=== PATIENT | male | born 1955 | race Caucasian/White ===

== ENCOUNTER 2016-06-28 09:29 | Emergency (ER) | payer OTHER ==
[~2016-06-28] VITALS: Ht 185.4 cm; Wt 108.9 kg
[~2016-06-28 09:29] MED LIST: AMOX-358 PO; ASPI-84 PO; ATEN25TA PO; ATEN50TA PO; CLIN-62 PO; HYDR1CAP2 PO; SULF1TAB38 PO
--- OUTSIDE RECORDS SUMMARY | 2016-06-28 09:36 | XMS REPORT | Continuity of Care Document ---
Author Author [facility] Address Unknown Phone Unavailable Allergies Medications Problems Date Dx Coded Attending Type Code Diagnosis Diagnosed By 04/24/2014 JENNIFER CURRAN MD 401.1 BENIGN ESSENTIAL HYPERTENSION 04/24/2014 JENNIFER CURRAN MD V76.51 COLON CANCER SCREENING Procedures Code [place] [id number] ROUTINE VENIPUNCTURE 04/24/2014 99762 CMP 04/24/2014 87298 LIPID PANEL 04/24 Results Encounters ACCT No. Visit Date/Time Discharge Status Pt. Type Provider Facility Loc./Unit Complaint [id number] 04/24/2014 08:14:00 04/24/2014 23: 59:59 CLS Outpatient JENNIFER CURRAN MD
[2016-06-28 10:10] LABS: BASOPHILS % (AUTO) 0 % (0-10); EOSINOPHILS % (AUTO) 1 % (0-10); LYMPHOCYTES # (AUTO) 0.4 X 10^3 (1.0-4.0); LYMPHOCYTES % (AUTO) 6 % (12-44); MEAN CORPUSCULAR HEMOGLOBIN 30 PG (25-34); MEAN CORPUSCULAR HGB CONC 34 G/DL (32-36); MEAN CORPUSCULAR VOLUME 89 FL (80-99); MEAN PLATELET VOLUME 8.8 FL (7.4-10.4); MONOCYTES # (AUTO) 0.3 X 10^3 (0.0-1.0); MONOCYTES % (AUTO) 5 % (0-12); NEUTROPHILS % (AUTO) 88 % (42-75); PLATELET COUNT 242 10^3/uL (130-400); RED BLOOD COUNT 4.06 10^6/uL (4.35-5.85); RED CELL DISTRIBUTION WIDTH 12.5 % (10.0-14.5); WHITE BLOOD COUNT 6.9 10^3/uL (4.3-11.0)
--- NOTE | 2016-06-28 10:29 | ED General ---
General Chief Complaint: General Problems/Pain Stated Complaint: LEGS/SHOULDERS/ARMS PAIN Nursing Triage Note: AMB TO ROOM REPORTS SINCE OCTOBER HAS HAD JOINT PAIN . WAS ON VACATION AT [facility] HAD NEG WORK UP IN ER AT THAT TIME. STARTED ON B/P MEDS . HAS GOTTEN BETTER. LAST 2 MONTHS IT HAS CAME BACK NO FOLLOW UP DONE TOOK 1 ADVIL FOR PAIN Nursing Sepsis Screen: No Definite Risk Source of Information: Patient Exam Limitations: No Limitations History of Present Illness Time Seen by Provider: 09:40 Initial Comments This 61-year-old gentleman presents to the emergency room with generalized myalgias affecting primarily his upper extremities and his thighs. This has been getting progressively worse over the past couple of days. 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 He had a thorough workup reportedly performed by an ER provider near [facility]. He reports the workup was negative and symptoms eventually gradually resolved until he was back to baseline around February. He did receive a short course of steroids by his provider at [facility]. He was reports he was screened for rheumatologic disorders but no abnormalities were found. His present symptoms started around [place] time and have become progressively worse. He was not screen for tickborne diseases. He denies any GI or respiratory symptoms. He is only taken Advil 200 mg for this pain. He reports the pain and weakness is so intense that he can sometimes hardly stand up. Patient has no local primary care provider. Allergies and Home Medications Allergies Coded Allergies: No Known Drug Allergies (Unverified , 03/19/10) Home Medications Amoxicillin 500 Mg Tablet #40 1,000 MG PO BID Prescribed by: AMILCAR DAVE on 06/28/16 1444 Atenolol 25 Mg Tablet 25 MG PO DAILY (Reported) Hydrocodone/Acetaminophen 1 Each Tablet #10 1 EACH PO Q6H PRN PRN PAIN Prescribed by: AMILCAR DAVE on 06/28/16 1437 Constitutional: no symptoms reported EENTM: no symptoms reported Respiratory: no symptoms reported Cardiovascular: no symptoms reported Gastrointestinal: no symptoms reported Genitourinary: no symptoms reported Musculoskeletal: see HPI Skin: no symptoms reported Psychiatric/Neurological: No Symptoms Reported Hematologic/Lymphatic: No Symptoms Reported Past Oajtwrq-Rulxhn-Mqkpyf Hx Patient Social History Alcohol Use: Denies Use Recreational Drug Use: No Smoking Status: Never a Smoker Recent Foreign Travel: No Contact w/Someone Who Travel: No Recent Infectious Disease Expo: No Recent Hopitalizations: No Immunizations Up To Date Tetanus Booster (TDap): Unknown PED Vaccines UTD: Yes Seasonal Allergies Seasonal Allergies: No Surgeries HX Surgeries: No Respiratory Hx Respiratory Disorders: No Cardiovascular Hx Cardiac Disorders: Yes Cardiac Disorders: Hypertension Neurological Hx Neurological Disorders: No Reproductive System Hx Reproductive Disorders: No Genitourinary Hx Genitourinary Disorders: No Gastrointestinal Hx Gastrointestinal Disorders: No Musculoskeletal Hx Musculoskeletal Disorders: No Endocrine Hx Endocrine Disorders: No HEENT HX ENT Disorders: No Psychosocial Hx Psychiatric Problems: No Blood Transfusions Hx Blood Disorders: No Physical Exam Vital Signs Vital Sign - Last 12Hours 06/28/16 09:32 Temp 99.0 Pulse 88 Resp 18 B/P 133/94 Pulse Ox 96 Capillary Refill : Less Than 3 Seconds General Appearance: No Apparent Distress WD/WN HEENT: PERRL/EOMI Normal ENT Inspection Pharynx Normal Other (severe dental decay and gingivitis) Neck: Normal Inspection Respiratory: Lungs Clear Normal Breath Sounds No Accessory Muscle Use No Respiratory Distress Cardiovascular: Regular Rate, Rhythm No Edema No Murmur Gastrointestinal: Normal Bowel Sounds Non Tender Soft Extremity: Normal Inspection No Pedal Edema Other (mild tenderness to palpation of the thighs and arms) Neurologic/Psychiatric: Alert Oriented x3 Normal Mood/Affect turkish rubber II-XII Norm as Tested Motor Weakness (mild proximal muscle weakness of the extremities) Skin: Normal Color Warm/Dry Progress/Results/Core Measures Results/Orders Lab Results Laboratory Tests Test 06/28/16 10:03 06/28/16 11:57 06/28/16 12:49 Range/Units Alanine Aminotransferase (ALT/SGPT) 17 0-55 U/L Albumin 3.1 L 3.2-4.5 G/DL Alkaline Phosphatase 43 40-136 U/L Anion Gap 10 5-14 MMOL/L Aspartate Amino Transf (AST/SGOT) 24 5-34 U/L BUN/Creatinine Ratio 16 Band Neutrophils 4 % Basophils # (Auto) 0.0 0.0-0.1 10^3/uL Basophils % (Manual) 0 % Basophils (%) (Auto) 0 0-10 % Blood Urea Nitrogen 30 H 7-18 MG/DL C-Reactive Protein High Sensitivity 8.17 H 0.00-0.50 MG/DL Calcium Level 8.5 8.5-10.1 MG/DL Carbon Dioxide Level 20 L 21-32 MMOL/L Chloride Level 106 98-107 MMOL/L Creatinine 1.84 H 0.60-1.30 MG/DL Elliptocytes SLIGHT Eosinophils # (Auto) 0.0 0.0-0.3 10^3/uL Eosinophils % (Manual) 0 % Eosinophils (%) (Auto) 1 0-10 % Erythrocyte Sedimentation Rate 77 H 0-30 MM/HR Estimat Glomerular Filtration Rate 37 Glucose Level 101 70-105 MG/DL Hematocrit 36 L 40-54 % Hemoglobin 12.2 L 13.3-17.7 G/DL Lymphocytes # (Auto) 0.4 L 1.0-4.0 X 10^3 Lymphocytes % (Manual) 3 % Lymphocytes (%) (Auto) 6 L 12-44 % Magnesium Level 1.8 1.8-2.4 MG/DL Mean Corpuscular Hemoglobin 30 25-34 PG Mean Corpuscular Hemoglobin Concent 34 32-36 G/DL Mean Corpuscular Volume 89 80-99 FL Mean Platelet Volume 8.8 7.4-10.4 FL Monocytes # (Auto) 0.3 0.0-1.0 X 10^3 Monocytes % (Manual) 6 % Monocytes (%) (Auto) 5 0-12 % Neutrophils # (Auto) 6.0 1.8-7.8 X 10^3 Neutrophils % (Manual) 87 % Neutrophils (%) (Auto) 88 H 42-75 % Platelet Count 242 130-400 10^3/uL Potassium Level 4.5 3.6-5.0 MMOL/L Red Blood Count 4.06 L 4.35-5.85 10^6/uL Red Cell Distribution Width 12.5 10.0-14.5 % Rheumatoid Factor NEGATIVE NEGATIVE Sodium Level 136 135-145 MMOL/L TSH [place] Testing 4.35 0.35-4.94 UIU/ML Total Bilirubin 0.5 0.1-1.0 MG/DL Total Creatine Kinase 23 L 30-200 U/L Total Protein 6.9 6.4-8.2 G/DL White Blood Count 6.9 4.3-11.0 10^3/uL Urine Bacteria NEGATIVE /HPF Urine Bilirubin NEGATIVE NEGATIVE Urine Casts PRESENT /LPF Urine Clarity CLEAR Urine Color YELLOW Urine Crystals NONE /LPF Urine Culture Indicated NO Urine Glucose (UA) NEGATIVE NEGATIVE Urine Hyaline Casts 5-10 H /LPF Urine Ketones NEGATIVE NEGATIVE Urine Leukocyte Esterase 1+ H NEGATIVE Urine Mucus SMALL H /LPF Urine Nitrite NEGATIVE NEGATIVE Urine Protein 4+ NEGATIVE Urine RBC 50-100 H /HPF Urine RBC (Auto) 5+ H NEGATIVE Urine Specific Bailey 1.020 1.016-1.022 Urine Squamous Epithelial Cells NONE /HPF Urine Urobilinogen NORMAL NORMAL MG/DL Urine WBC 0-2 /HPF Urine pH 6 5-9 Group A Streptococcus Screen NEGATIVE NEGATIVE My Orders Orders-AMILCAR LOZANO MD Cbc With Automated Diff (06/28/16 09:53) Comprehensive Metabolic Panel (06/28/16 09:53) Creatine Kinase (06/28/16 09:53) Hs C Reactive Protein (06/28/16 09:53) Magnesium (06/28/16 09:53) Thyroid Analyzer (06/28/16 09:53) Ua Culture If Indicated (06/28/16 09:53) Erythrocyte Sedimentation Rate (06/28/16 09:53) Saline Lock/Iv-Start (06/28/16 09:53) Manual Differential (06/28/16 10:03) Rheumatoid Factor (06/28/16 10:31) Ns Iv 1000 Ml (Sodium Chloride 0.9%) (06/28/16 11:00) Ketorolac Injection (Toradol Injection) (06/28/16 11:00) Ns Iv 1000 Ml (Sodium Chloride 0.9%) (06/28/16 12:44) Anti Streptolysin O Titer (06/28/16 12:54) Rapid Strep A Screen (06/28/16 12:54) Medications Given in ED Current Medications Medications Dose Ordered Sig/Lynne Route Start Time Stop Time Status Last Admin Dose Admin Ketorolac Tromethamine 15 mg 15 mg ONCE ONCE IVP 06/28/16 11:00 06/28/16 11:02 DC 06/28/16 11:06 15 MG Sodium Chloride 1,000 ml @ 0 mls/hr Q0M ONCE IV 06/28/16 11:00 06/28/16 11:02 DC 06/28/16 11:06 1,000 MLS/HR Sodium Chloride 1,000 ml @ 0 mls/hr Q0M ONCE IV 06/28/16 12:44 06/28/16 12:45 DC 06/28/16 12:57 1,000 MLS/HR Vital Signs/I&O Vital Sign - Last 12Hours 06/28/16 09:32 Temp 99.0 Pulse 88 Resp 18 B/P 133/94 Pulse Ox 96 Blood Pressure Mean: 107 Progress Note : Progress Note Patient received 2 L of IV fluid and Toradol 15 mg IV. He feels significantly improved. Case was reviewed with Dr. Curran at [facility]. Patient was actually seen by Dr. Curran in 2013. She does not have immediate availability for him to follow-up in the clinic but she will order labs for him to have done on . Patient will receive a prescription for hydrocodone to help with his pain in the meantime. Strep culture and ASO titer were pending at the time of dismissal. Rapid strep was negative. Patient requested antibiotic therapy for his severe dental disease. He was placed on amoxicillin. Patient thought perhaps his dental disease was contributing to the elevated inflammatory markers. Patient was encouraged to drink more fluids and follow-up with a dentist. The importance of follow-up with a medical doctor and repeat lab work was stressed. Departure Impression Impression: Primary Impression: Myalgia Additional Impressions: Proximal limb muscle weakness Acute renal insufficiency Elevated erythrocyte sedimentation rate Microscopic hematuria Dental decay Gingivitis Disposition: 01 HOME, SELF-CARE Condition: Improved Departure-Patient Inst. Decision time for Depature: 14:20 Referrals: NO,LOCAL PHYSICIAN (PCP/Family) Primary Care Physician Patient Instructions: Blood in the Urine (Hematuria) in Adults Add. Discharge Instructions: Drink plenty of clear liquids. You may take Tylenol or the hydrocodone prescribed for pain. Present to [facility] on [facility] to have blood drawn on , March 30. [facility] should call you for an appointment time. Please check with them on if an appointment has not been communicated to you yet. Return to the emergency room if symptoms worsen. All discharge instructions reviewed with patient and/or family. Voiced understanding. Scripts Amoxicillin 500 Mg Tablet1,000 Mg PO BID #40 TAB Prov:AMILCAR LOZANO MD 06/28/16 Hydrocodone/Acetaminophen (Hydrocodon -Acetaminophen 5-325)1 Each Tablet1 Each PO Q6H PRN PAIN #10 TAB Prov:AMILCAR LOZANO MD 06/28/16 Copy Copies To 1: JENNIFER CURRAN MD, JOSHUA T MD Jun 28, 2016 10:29
[2016-06-28 10:31] LABS: ALBUMIN 3.1 G/DL (3.2-4.5); BILIRUBIN,TOTAL 0.5 MG/DL (0.1-1.0); CALCIUM 8.5 MG/DL (8.5-10.1); CREATININE SERUM 1.84 MG/DL (0.60-1.30); MAGNESIUM 1.8 MG/DL (1.8-2.4); POTASSIUM 4.5 MMOL/L (3.6-5.0); TOTAL PROTEIN 6.9 G/DL (6.4-8.2); hs C REACTIVE PROTEIN 8.17 MG/DL (0.00-0.50)
[2016-06-28 10:40] LABS: BAND NEUTROPHILS 4 %; BASOPHILS % (MANUAL) 0 %; EOSINOPHILS % (MANUAL) 0 %; LYMPHOCYTES % (MANUAL) 3 %; NEUTROPHILS % (MANUAL) 87 %
[2016-06-28] MEDS ORDERED: NS IV 1000 ML 1,000 ML IV ONE ×2 (11:00→12:44)
[2016-06-28] MEDS ORDERED: KETOROLAC 30 MG/ML VIAL IVP ONE (11:00)
[2016-06-28 11:15] LABS: ERYTHROCYTE SEDIMENTATION RATE 77 MM/HR (0-30)
[2016-06-28 12:04] LABS: BILIRUBIN,URINE NEGATIVE (NEGATIVE); KETONES,URINE NEGATIVE (NEGATIVE); LEUKOCYTE ESTERASE ,URINE 1+ (NEGATIVE); NITRITE,URINE NEGATIVE (NEGATIVE); PH,URINE 6 (5-9); PROTEIN,URINE 4+ (NEGATIVE); UROBILINOGEN,URINE NORMAL (NORMAL)
[2016-06-28 12:23] LABS: WBC,URINE 0-2 /HPF
[2016-06-28] MEDS ORDERED: HYDR-3812 PO (14:37)
[2016-06-28 14:42] VITALS: BP 161/93
[2016-06-28] MEDS ORDERED: AMOX500T2 PO (14:44)
== END 2016-06-28 14:42 | disposition home or self-care (01) ==
LOC: EDUNIT# 09:29 → ER 09:31
DX: M79.1 Myalgia (principal); M62.81 Muscle weakness (generalized); N28.9 Disorder of kidney and ureter, unspecified; R70.0 Elevated erythrocyte sedimentation rate; R31.29 Other microscopic hematuria; K02.9 Dental caries, unspecified; K05.10 Chronic gingivitis, plaque induced; I10 Essential (primary) hypertension; Z79.899 Other long term (current) drug therapy
CPT/HCPCS: 36415; 80053; 81000; 82550; 83735; 84443; 85007; 85027; 85652; 86060; 86141; 86430; 87430; 96361; 96374

== ENCOUNTER 2016-07-03 13:16 | Inpatient (IN) | payer OTHER ==
[~2016-07-03] VITALS: Ht 182.9 cm; Wt 101.7 kg
[~2016-07-03 13:16] MED LIST changes: +AMOX500T2 PO; +HYDR-3812 PO
--- OUTSIDE RECORDS SUMMARY | 2016-07-03 13:21 | XMS REPORT | Continuity of Care Document ---
Author Author [facility] Address Unknown Phone Unavailable Allergies Medications Problems Date Dx Coded Attending Type Code Diagnosis Diagnosed By 04/24/2014 JENNIFER CURRAN MD 401.1 BENIGN ESSENTIAL HYPERTENSION 04/24/2014 JENNIFER CURRAN MD V76.51 COLON CANCER SCREENING Procedures Code [place] [id number] ROUTINE VENIPUNCTURE 04/24/2014 28881 CMP 04/24/2014 28897 LIPID PANEL 04/24 Results Encounters ACCT No. Visit Date/Time Discharge Status Pt. Type Provider Facility Loc./Unit Complaint [id number] 04/24/2014 08:14:00 04/24/2014 23: 59:59 CLS Outpatient JENNIFER CURRAN MD
[2016-07-03] MEDS ORDERED: tylenol (13:56)
[2016-07-03] MEDS ORDERED: NS IV 1000 ML 1,000 ML IV ONE (15:34)
--- NOTE | 2016-07-03 15:40 | ED GI ---
General Chief Complaint: Abdominal/GI Problems Stated Complaint: DEHYDRATION Nursing Triage Note: pt reports he was seen on 06/29/16, diagnosed with dehydration, sent home after fluids to f/u with his dr. he is unable to get in with [facility] until 07/12/16. reports he is not thirsty et isn't able to drink more than 16 oz per day. reports the decreased thirst is only in the past couple of days. c/o arm et leg pain x months. also c/o right side pain. he thinks he pulled a muscle standing up. Sepsis Screen: No Definite Risk Source of Information: Patient Exam Limitations: No Limitations History of Present Illness Time Seen By Provider: 15:25 Initial Comments Here with report of decreased urination and decreased thirst as well as right upper quadrant abdominal pain and intermittent fevers that have been going on for the last 4-5 days. This is all worse over the last 24 hours. He states that he's only drink one 8 ounce glass of water since yesterday. He states that he's been weak and has been unable to get up off the couch. Complains of right-sided pain that he thinks is related to that because his son has had to help him off the couch. He uses his right arm to pull up and he believes that is what caused the pain. He admits though that he has had right upper quadrant pain for a little while and this may not be related. Does complain of bilateral leg pain that has been going on for a long time. Timing/Duration: 1 Week, Getting Worse Severity/Quality: Moderate, Aching Location: RUQ Radiation: No Radiation Associated Symptoms: No Back Pain, Fever/Chills FatigueNo Nausea/Vomiting, No Shortness of Air, Weakness Allergies and Home Medications Allergies Coded Allergies: No Known Drug Allergies (Unverified , 03/19/10) Home Medications (Reported) Amoxicillin 500 Mg Tablet #40 1,000 MG PO BID Prescribed by: AMILCAR DAVE on 06/28/16 1444 Atenolol 25 Mg Tablet 25 MG PO DAILY (Reported) Review of Systems Constitutional: see HPI fever malaise weakness EENTM: No Symptoms Reported Respiratory: No Symptoms ReportedDenies Cough, Denies Wheezing Cardiovascular: No Symptoms Reported Gastrointestinal: Abdominal Pain Nausea Poor Fluid Intake Genitourinary: Other (decreased urine output. Dark colored urine.) Musculoskeletal: see HPI muscle painNo neck pain Skin: no symptoms reported Psychiatric/Neurological: No Symptoms Reported Endocrine: No Symptoms Reported All Other Systems Reviewed Negative Unless Noted: Yes Past Mwyzdau-Bnoopt-Zxpbex Hx Patient Social History Alcohol Use: Denies Use Recreational Drug Use: No Smoking Status: Never a Smoker Recent Foreign Travel: No Contact w/Someone Who Travel: No Recent Infectious Disease Expo: No Recent Hopitalizations: No Immunizations Up To Date Tetanus Booster (TDap): Unknown PED Vaccines UTD: Yes Seasonal Allergies Seasonal Allergies: No Surgeries HX Surgeries: No Respiratory Hx Respiratory Disorders: No Cardiovascular Hx Cardiac Disorders: Yes Cardiac Disorders: Hypertension Neurological Hx Neurological Disorders: No Reproductive System Hx Reproductive Disorders: No Genitourinary Hx Genitourinary Disorders: No Gastrointestinal Hx Gastrointestinal Disorders: No Musculoskeletal Hx Musculoskeletal Disorders: No Endocrine Hx Endocrine Disorders: No HEENT HX ENT Disorders: No Psychosocial Hx Psychiatric Problems: No Blood Transfusions Hx Blood Disorders: No Reviewed Nursing Assessment Reviewed/Agree w Nursing PMH: Yes Family Medical History Significant Family History: No Pertinent Family Hx Physical Exam Vital Signs VS - Last 72 Hours, by Label 07/03/16 13:50 Temp 99.3 Pulse 80 Resp 16 B/P 151/94 Capillary Refill : Less Than 3 Seconds General Appearance: WD/WN no apparent distress HEENT: PERRL/EOMI pharynx normal Neck: full range of motion supple Respiratory: lungs clear normal breath sounds Cardiovascular: regular rate, rhythm no murmur Gastrointestinal: soft tenderness (right upper quadrant) Extremities: non-tender normal inspection Back: normal inspection no CVA tenderness no vertebral tenderness Neurologic/Psychiatric: alert oriented x 3 Skin: normal color warm/dry Progress/Results/Core Measures Results/Orders Lab Results Laboratory Tests Test 07/03/16 15:23 07/03/16 15:37 07/03/16 16:45 Range/Units Urine Bacteria NEGATIVE /HPF Urine Bilirubin NEGATIVE NEGATIVE Urine Casts PRESENT /LPF Urine Clarity SLIGHTLY CLOUDY Urine Color YELLOW Urine Crystals NONE /LPF Urine Culture Indicated NO Urine Glucose (UA) NEGATIVE NEGATIVE Urine Hyaline Casts 2-5 H /LPF Urine Ketones NEGATIVE NEGATIVE Urine Leukocyte Esterase 1+ H NEGATIVE Urine Mucus NEGATIVE /LPF Urine Nitrite NEGATIVE NEGATIVE Urine Protein 4+ NEGATIVE Urine RBC TNTC H /HPF Urine RBC (Auto) 5+ H NEGATIVE Urine Specific [place] 1.020 1.016-1.022 Urine Squamous Epithelial Cells NONE /HPF Urine Urobilinogen 1 NORMAL MG/DL Urine WBC NONE /HPF Urine pH 6 5-9 Alanine Aminotransferase (ALT/SGPT) 22 0-55 U/L Albumin 3.1 L 3.2-4.5 G/DL Alkaline Phosphatase 48 40-136 U/L Amylase Level 40 25-125 U/L Anion Gap 11 5-14 MMOL/L Aspartate Amino Transf (AST/SGOT) 30 5-34 U/L BUN/Creatinine Ratio 15 Basophils # (Auto) 0.0 0.0-0.1 10^3/uL Basophils (%) (Auto) 0 0-10 % Blood Urea Nitrogen 26 H 7-18 MG/DL C-Reactive Protein High Sensitivity 11.31 H 0.00-0.50 MG/DL Calcium Level 8.5 8.5-10.1 MG/DL Carbon Dioxide Level 22 21-32 MMOL/L Chloride Level 104 98-107 MMOL/L Creatinine 1.73 H 0.60-1.30 MG/DL Eosinophils # (Auto) 0.0 0.0-0.3 10^3/uL Eosinophils (%) (Auto) 1 0-10 % Estimat Glomerular Filtration Rate 40 Glucose Level 100 70-105 MG/DL Hematocrit 35 L 40-54 % Hemoglobin 11.8 L 13.3-17.7 G/DL Lipase 11 8-78 U/L Lymphocytes # (Auto) 0.6 L 1.0-4.0 X 10^3 Lymphocytes (%) (Auto) 8 L 12-44 % Magnesium Level 1.7 L 1.8-2.4 MG/DL Mean Corpuscular Hemoglobin 30 25-34 PG Mean Corpuscular Hemoglobin Concent 34 32-36 G/DL Mean Corpuscular Volume 90 80-99 FL Mean Platelet Volume 8.9 7.4-10.4 FL Monocytes # (Auto) 0.5 0.0-1.0 X 10^3 Monocytes (%) (Auto) 6 0-12 % Neutrophils # (Auto) 6.3 1.8-7.8 X 10^3 Neutrophils (%) (Auto) 85 H 42-75 % Platelet Count 262 130-400 10^3/uL Potassium Level 4.0 3.6-5.0 MMOL/L Red Blood Count 3.88 L 4.35-5.85 10^6/uL Red Cell Distribution Width 12.6 10.0-14.5 % Sodium Level 137 135-145 MMOL/L Total Bilirubin 0.5 0.1-1.0 MG/DL Total Protein 7.0 6.4-8.2 G/DL White Blood Count 7.4 4.3-11.0 10^3/uL My Orders Orders-MAYNOR BRONSON MD Amylase (07/03/16 15:34) Cbc With Automated Diff (07/03/16 15:34) Comprehensive Metabolic Panel (07/03/16 15:34) Hs C Reactive Protein (07/03/16 15:34) Lipase (07/03/16 15:34) Magnesium (07/03/16 15:34) Ua Culture If Indicated (07/03/16 15:34) Saline Lock/Iv-Start (07/03/16 15:34) Ns Iv 1000 Ml (Sodium Chloride 0.9%) (07/03/16 15:34) Ct Abdomen/Pelvis Wo (07/03/16 15:34) Chest Pa/Lat (2 View) (07/03/16 15:34) Blood Culture (07/03/16 16:40) Lactic Acid Analyzer (07/03/16 16:40) Medications Given in ED Current Medications Medications Dose Ordered Sig/Lynne Route Start Time Stop Time Status Last Admin Dose Admin Sodium Chloride 1,000 ml @ 0 mls/hr Q0M ONCE IV 07/03/16 15:34 07/03/16 15:35 DC 07/03/16 15:48 1,000 MLS/HR Vital Signs/I&O Vital Sign - Last 12Hours 07/03/16 13:50 Temp 99.3 Pulse 80 Resp 16 B/P 151/94 Blood Pressure Mean: 113 Progress Note : Progress Note Seen and evaluated. IV, labs, UA, normal saline [address] abdomen and pelvis without contrast ordered. Chest x-ray two-view ordered. Monitor patient. 1645: CT reading and chest x-ray results noted. There is concerns about right basilar pneumonia. Given patient's increasing right-sided abdominal pain and low chest wall pain with increasing CRP, left shift and fever , I am concerned about pneumonia. Patient has poor dentition and has been on amoxicillin. This leads to concerns about pneumonia related to oral disease. All of the findings and concerns were discussed with Dr. Rinaldi. We will place him on the community-acquired pneumonia protocol with Rocephin and Zithromax but also add clindamycin due to the periodontal disease and concerns for infection of the lungs related to this. Patient's creatinine is elevated but appears stable from 4 days ago. He did receive 1 L of normal saline in the ER and we will continue hydration inpatient. All findings and concerns were discussed with the patient who agrees with the plan. Admit, inpatient status. Diagnostic Imaging Diagonstic Imaging: Xray Plain Films/CT/US/NM/MRI: chest Comments NAME: PAUL CORDERO MED REC#: [id number] PT STATUS: REG ER : 1955 PHYSICIAN: MAYNOR BRONSON MD ADMIT DATE: 07/03/16/ER Signed Date of Exam: 07/03/16 CHEST PA/LAT (2 VIEW) INDICATION: Right-sided chest pain. COMPARISON: CT abdomen and pelvis performed concurrently. FINDINGS: Small right pleural effusion with associated linear atelectasis. Patchy left basilar linear opacities also likely represent atelectasis. No consolidation. No pneumothorax. Heart is normal in size. Normal mediastinal contours. IMPRESSION: 1. Small right pleural effusion with associated basilar subsegmental atelectasis. Patchy left basilar linear atelectasis is also present. Dictated by: Dictated on workstation # [id number] Dict: 07/03/16 1611 Trans: 07/03/16 1624 [id number] Interpreted by: CHAPIS RUSSO MD Electronically signed by:CHAPIS RUSSO MD 07/03/16 1627 Reviewed: Reviewed by Me Diagonstic Imaging: CT Plain Films/CT/US/NM/MRI: abdomen, pelvis Comments NAME: PAUL CORDERO MED REC#: [id number] PT STATUS: REG ER : 1955 PHYSICIAN: MAYNOR BRONSON MD ADMIT DATE: 07/03/16/ER Signed Date of Exam: 07/03/16 CT ABDOMEN/PELVIS WO PROCEDURE: CT abdomen and pelvis without contrast. TECHNIQUE: Multiple contiguous axial images were obtained through the abdomen and pelvis without the use of intravenous contrast. INDICATION: Right-sided flank pain. FINDINGS: There is a small right pleural effusion with right basilar atelectasis. Liver appears normal. The gallbladder and bile ducts are normal. The pancreas is normal. The spleen is normal. Adrenal glands appear normal. There are bilateral peripelvic cysts. There are a few nonobstructing calyceal calculi present, bilaterally. The ureters are not dilated. There are no calculi within the ureters. The bladder appears normal. No calculi are seen in the bladder. The aorta shows mild atherosclerosis without evidence of aneurysm. No intra-abdominal adenopathy of pathologic size. The appendix is not identified. No evidence of edema surrounding the cecum. The terminal colon is visualized and normal. Colon shows normal stool and gas pattern throughout. Stomach and small bowel appear normal with no distended bowel loops. There is no free air or free fluid. No evidence of ventral or inguinal hernias. IMPRESSION: 1. Multiple large peripelvic cysts are present in the kidneys which appear similar to previous exam. There are several nonobstructing calyceal calculi present, bilaterally. 2. The appendix is not specifically identified though no edema or inflammatory changes are seen around the cecum. 3. Small bowel appears normal. 4. There is some atelectasis and/or infiltrate in the right lung base with small right pleural effusion. Dictated by: Dictated on workstation # [id number] Dict: 07/03/16 1607 Trans: 07/03/16 1633 [facility] [id number] Interpreted by: SONU RUSSO MD Electronically signed by:SONU RUSSO MD 07/03/16 1635 Reviewed: Reviewed by Mo Departure Communication Time/Spoke to Admitting Phy: 16:45 Impression Impression: Primary Impression: Right lower lobe pneumonia Qualified Code: J18.1 - Lobar pneumonia, unspecified organism Additional Impression: Periodontal disease Disposition: ADMITTED INPATIENT Condition: Stable Decision to Admit Reason: Admit from ER (General) Decision to Admit/Date: Jul 03, 2016 Time/Decision to Admit Time: 16:45 Departure-Patient Inst. Referrals: [facility] (PCP/Family) Primary Care Physician MAYNOR BRONSON MD Jul 03, 2016 15:40
[2016-07-03 15:46] LABS: BILIRUBIN,URINE NEGATIVE (NEGATIVE); KETONES,URINE NEGATIVE (NEGATIVE); LEUKOCYTE ESTERASE ,URINE 1+ (NEGATIVE); NITRITE,URINE NEGATIVE (NEGATIVE); PH,URINE 6 (5-9); PROTEIN,URINE 4+ (NEGATIVE); UROBILINOGEN,URINE 1 MG/DL (NORMAL)
[2016-07-03 15:53] LABS: BASOPHILS % (AUTO) 0 % (0-10); EOSINOPHILS % (AUTO) 1 % (0-10); LYMPHOCYTES # (AUTO) 0.6 X 10^3 (1.0-4.0); LYMPHOCYTES % (AUTO) 8 % (12-44); MEAN CORPUSCULAR HEMOGLOBIN 30 PG (25-34); MEAN CORPUSCULAR HGB CONC 34 G/DL (32-36); MEAN CORPUSCULAR VOLUME 90 FL (80-99); MEAN PLATELET VOLUME 8.9 FL (7.4-10.4); MONOCYTES # (AUTO) 0.5 X 10^3 (0.0-1.0); MONOCYTES % (AUTO) 6 % (0-12); NEUTROPHILS # (AUTO) 6.3 X 10^3 (1.8-7.8); NEUTROPHILS % (AUTO) 85 % (42-75); PLATELET COUNT 262 10^3/uL (130-400); RED BLOOD COUNT 3.88 10^6/uL (4.35-5.85); RED CELL DISTRIBUTION WIDTH 12.6 % (10.0-14.5); WHITE BLOOD COUNT 7.4 10^3/uL (4.3-11.0)
[2016-07-03 16:06] LABS: ALBUMIN 3.1 G/DL (3.2-4.5); BILIRUBIN,TOTAL 0.5 MG/DL (0.1-1.0); CALCIUM 8.5 MG/DL (8.5-10.1); CREATININE SERUM 1.73 MG/DL (0.60-1.30); MAGNESIUM 1.7 MG/DL (1.8-2.4); hs C REACTIVE PROTEIN 11.31 MG/DL (0.00-0.50)
--- NOTE | 2016-07-03 16:18 | Diagnostic Imaging Report ---
INDICATION: Right-sided chest pain. COMPARISON: CT abdomen and pelvis performed concurrently. FINDINGS: Small right pleural effusion with associated linear atelectasis. Patchy left basilar linear opacities also likely represent atelectasis. No consolidation. No pneumothorax. Heart is normal in size. Normal mediastinal contours. IMPRESSION: 1. Small right pleural effusion with associated basilar subsegmental atelectasis. Patchy left basilar linear atelectasis is also present. Dictated by: Dictated on workstation # [id number]
--- NOTE | 2016-07-03 16:18 | Diagnostic Imaging Report ---
PROCEDURE: CT abdomen and pelvis without contrast. TECHNIQUE: Multiple contiguous axial images were obtained through the abdomen and pelvis without the use of intravenous contrast. INDICATION: Right-sided flank pain. FINDINGS: There is a small right pleural effusion with right basilar atelectasis. Liver appears normal. The gallbladder and bile ducts are normal. The pancreas is normal. The spleen is normal. Adrenal glands appear normal. There are bilateral peripelvic cysts. There are a few nonobstructing calyceal calculi present, bilaterally. The ureters are not dilated. There are no calculi within the ureters. The bladder appears normal. No calculi are seen in the bladder. The aorta shows mild atherosclerosis without evidence of aneurysm. No intra-abdominal adenopathy of pathologic size. The appendix is not identified. No evidence of edema surrounding the cecum. The terminal colon is visualized and normal. Colon shows normal stool and gas pattern throughout. Stomach and small bowel appear normal with no distended bowel loops. There is no free air or free fluid. No evidence of ventral or inguinal hernias. IMPRESSION: 1. Multiple large peripelvic cysts are present in the kidneys which appear similar to previous exam. There are several nonobstructing calyceal calculi present, bilaterally. 2. The appendix is not specifically identified though no edema or inflammatory changes are seen around the cecum. 3. Small bowel appears normal. 4. There is some atelectasis and/or infiltrate in the right lung base with small right pleural effusion. Dictated by: Dictated on workstation # [id number]
[2016-07-03] MEDS ORDERED: cefTRIAXone INJECTION 1,000 MG in NS (IVPB) 50 ML IV ONE (17:15)
[2016-07-03] MEDS ORDERED: ASPI-983 PO (18:12)
[2016-07-03] MEDS ORDERED: AZITHROMYCIN IV ADD-VANTAGE 500 MG in SODIUM CHLORIDE (ADD-VANTAGE) 250 ML IV ONE (18:15)
[2016-07-03] MEDS ORDERED: SODIUM CHLORIDE (ADD-VANTAGE) 250 ML ONE (18:30)
[2016-07-03] MEDS ORDERED: AZITHROMYCIN IV ADD-VANTAGE 500 MG IV ONE (18:30)
[2016-07-03] MEDS: NS IV 1000 ML 1,000 ML IV SCH (18:34)
[2016-07-03 20:18] VITALS: BP 159/91
[2016-07-03] MEDS: CLINDAMYCIN 900 MG/50 ML IVPB 50 ML IV SCH (21:42)
[2016-07-04 00:36] VITALS: BP 133/82
[2016-07-04 04:17] VITALS: BP 143/87
[2016-07-04] MEDS: NS IV 1000 ML 1,000 ML IV SCH ×4 (04:46→21:16)
[2016-07-04] MEDS: CLINDAMYCIN 900 MG/50 ML IVPB 50 ML IV SCH ×3 (05:04→21:16)
[2016-07-04 06:18] LABS: BASOPHILS % (AUTO) 0 % (0-10); EOSINOPHILS % (AUTO) 1 % (0-10); LYMPHOCYTES # (AUTO) 0.4 X 10^3 (1.0-4.0); MEAN CORPUSCULAR HEMOGLOBIN 30 PG (25-34); MEAN CORPUSCULAR HGB CONC 33 G/DL (32-36); MEAN CORPUSCULAR VOLUME 92 FL (80-99); MEAN PLATELET VOLUME 9.1 FL (7.4-10.4); MONOCYTES # (AUTO) 0.3 X 10^3 (0.0-1.0); MONOCYTES % (AUTO) 7 % (0-12); PLATELET COUNT 198 10^3/uL (130-400); RED BLOOD COUNT 3.17 10^6/uL (4.35-5.85); RED CELL DISTRIBUTION WIDTH 12.5 % (10.0-14.5); WHITE BLOOD COUNT 4.8 10^3/uL (4.3-11.0)
[2016-07-04 06:19] LABS: LYMPHOCYTES % (AUTO) 9 % (12-44); NEUTROPHILS % (AUTO) 83 % (42-75)
[2016-07-04 06:41] LABS: ALBUMIN 2.5 G/DL (3.2-4.5); BILIRUBIN,TOTAL 0.3 MG/DL (0.1-1.0); CALCIUM 7.4 MG/DL (8.5-10.1); CREATININE SERUM 1.51 MG/DL (0.60-1.30); POTASSIUM 4.2 MMOL/L (3.6-5.0); TOTAL PROTEIN 5.5 G/DL (6.4-8.2)
[2016-07-04] MEDS ORDERED: FLU TRIvalent (5 YOA+) 2016-17 (AFLURIA) 0.5 ML IM ONE (07:30)
[2016-07-04 08:00] VITALS: BP 164/96
[2016-07-04] MEDS ORDERED: ACET-2267 PO (08:43)
[2016-07-04] MEDS: AZITHROMYCIN 250 MG TAB (ZITHROMAX) PO SCH (09:05)
[2016-07-04] MEDS ORDERED: ATEN50TA PO (09:13)
[2016-07-04] MEDS ORDERED: HYDR-3812 PO (09:13)
[2016-07-04] MEDS ORDERED: AMOX500C2 PO (09:13)
[2016-07-04 12:00] VITALS: BP 178/97
[2016-07-04 12:02] LABS: BILIRUBIN,URINE NEGATIVE (NEGATIVE); KETONES,URINE NEGATIVE (NEGATIVE); LEUKOCYTE ESTERASE ,URINE NEGATIVE (NEGATIVE); NITRITE,URINE NEGATIVE (NEGATIVE); PH,URINE 6 (5-9); PROTEIN,URINE 4+ (NEGATIVE); UROBILINOGEN,URINE NORMAL (NORMAL)
[2016-07-04 12:18] LABS: CALCIUM OXALATE CRYSTALS,UR FEW /LPF; SQUAMOUS EPITHELIAL CELL,UR 0-2 /HPF
[2016-07-04] MEDS ORDERED: RX-HYDROCODONE/APAP 5/325 MG #4 TAB PK PO PRN (14:30)
[2016-07-04] MEDS ORDERED: ENOXAPARIN 40 MG/0.4 ML (LOVENOX) SYR SC SCH (15:30)
--- NOTE | 2016-07-04 15:35 | Progress Note-Hospitalist ---
Standard Progress Note Progress Notes/Assess & Plan Date Seen 07/04/16 Assess & Plan/Chief Complaint The patient is a 61-year-old white male who was admitted from the emergency room. He reported being seen prior to that on 06/29. He was apparently given IV fluids and sent home. He stated he could not get in to [facility] until 07/12. He gave a confusing story about not being thirsty and he wasn't able to drink more than 16 ounces per day. He also reported chest and abdominal pain on the right side. He then recounted that the pain in the right upper abdomen had been there prior to the chest component. He also had complaints of bilateral leg pain which had been present for some time. Physical exam: He responded to questions and simple terms. Lungs are clear to auscultation. CV was regular without murmur. Extremities showed no pedal edema. Laboratory showed his presentation creatinine to be 1.73 and to be 1.51 this morning with hydration. A review of old labs showed that he had a creatinine at 1.4 as far back as 2011. Of other note the UA showed RBCs too numerous to count initially but only 2-5 today. Impression: Dehydration. Viral symptoms. Plan: Continue IV fluids through the night and plan discharge for tomorrow. Labs Laboratory Tests 07/03/16 15:37 07/04/16 06:05 CHARY KRAMER MD Jul 04, 2016 15:35
[2016-07-04] MEDS ORDERED: ATENOLOL 50 MG (TENORMIN) TAB PO NR (16:00)
[2016-07-04] MEDS: HYDROcodone/APAP 5 MG/325 MG (LORTAB) TAB PO PRN (16:25)
[2016-07-04 16:42] VITALS: BP 154/96
[2016-07-04] MEDS ORDERED: cefTRIAXone INJECTION 1,000 MG in NS (IVPB) 50 ML IV SCH (17:00)
[2016-07-04 19:53] VITALS: BP 161/86
[2016-07-05] VITALS: BP 176/97
[2016-07-05] MEDS: HYDROcodone/APAP 5 MG/325 MG (LORTAB) TAB PO PRN ×2 (03:43→11:57)
[2016-07-05 04:54] VITALS: BP 164/84
[2016-07-05] MEDS: CLINDAMYCIN 900 MG/50 ML IVPB 50 ML IV SCH (05:14)
[2016-07-05] MEDS: NS IV 1000 ML 1,000 ML IV SCH (05:15)
[2016-07-05 08:00] VITALS: BP 156/90
[2016-07-05] MEDS: AZITHROMYCIN 250 MG TAB (ZITHROMAX) PO SCH (08:33)
[2016-07-05] MEDS ORDERED: ATENOLOL 50 MG (TENORMIN) TAB PO SCH (09:00)
[2016-07-05] MEDS ORDERED: ASPIRIN E.C. 81 MG (ECOTRIN) TAB PO SCH (09:00)
--- NOTE | 2016-07-05 10:58 | Short Stay Summary-Hospitalist ---
HPI History of Present Illness: HPI/Chief Complaint The patient is a 61-year-old white male who was admitted after he presented to the emergency room on 07/03. He had previously been seen on 06/29 and diagnosed with dehydration. He was given IV antibiotics and discharged to home. He was to have gotten an appointment with the [facility] that was not available until 07/12. When he returned he stated that today he was no longer thirsty and unable to drink only 16 ounces or less per day. He also had rather vague complaints of right arm and right leg pain which were apparent for months and then he also stated that he had had some right sided pain. The relationship of this to his other complaints is not clear. Date Seen 07/05/16 Attending Physician Robyn Rinaldi MD PCP [facility] Referring Physician Date of Admission Jul 03, 2016 at 16:52 Home Medications & Allergies Home Medications Reviewed patient Home Medication Reconciliation Form Allergies Coded Allergies: No Known Drug Allergies (Unverified , 03/19/10) Past Zqzbwps-Dhfzff-Xbbkvk Hx Patient Social History Alcohol Use: Denies Use Recreational Drug Use: No Smoking Status: Never a Smoker Physical Abuse Screen: No Sexual Abuse: No Recent Foreign Travel: No Contact w/other who traveled: No Recent Hopitalizations: No Recent Infectious Disease Expo: No Immunizations Up To Date Tetanus Booster (TDap): Unknown Seasonal Allergies Seasonal Allergies: No Surgeries HX Surgeries: No Respiratory Hx Respiratory Disorders: No Cardiovascular Hx Cardiovascular Disorders: Yes Cardiac Disorders: Hypertension Neurological Hx Neurological Disorders: No Reproductive System Hx Reproductive Disorders: No Sexually Transmitted Disease: No HIV/AIDS: No Genitourinary Hx Genitourinary Disorders: No Genitourinary Disorders: Kidney Stones Gastrointestinal Hx Gastrointestinal Disorders: No Gastrointestinal Disorders: Gastroesophageal Reflux Musculoskeletal Hx Musculoskeletal Disorders: No Endocrine Hx Endocrine Disorders: No HEENT HX ENT Disorders: No Psychosocial Hx Psychiatric Problems: No Blood Transfusions Hx Blood Disorders: No Reviewed Nursing Assessment Reviewed/Agree w Nursing PMH: Yes Family Medical History Significant Family History: No Pertinent Family Hx Family Hx: Cardiovascular disease G8 BROTHER Completed stroke 19 MOTHER Hypertension G8 BROTHER Myocardial infarction 19 FATHER 19 MOTHER Prostate cancer G8 BROTHER Review of Systems Constitutional: see HPI EENTM: no symptoms reported Respiratory: cough Cardiovascular: no symptoms reported Gastrointestinal: no symptoms reported Genitourinary: no symptoms reported Musculoskeletal: muscle pain Skin: no symptoms reported Psychiatric/Neurological: No Symptoms Reported Physical Exam Physical Exam Vital Signs Vital Sign - Last 12Hours 07/03/16 07/03/16 07/03/16 13:50 17:42 19:05 Temp 99.3 Pulse 80 Resp 16 B/P 151/94 Pulse Ox 98 O2 Delivery Nasal Cannula O2 Flow Rate 2.00 Capillary Refill : Less Than 3 Seconds General Appearance: No Apparent Distress WD/WN Eyes: Bilateral Eye Normal Inspection HEENT: Normal ENT Inspection Neck: Full Range of Motion Normal Inspection Non Tender Supple Carotid Bruit Respiratory: Chest Non Tender Lungs Clear Normal Breath Sounds No Accessory Muscle Use No Respiratory Distress Cardiovascular: Regular Rate, Rhythm No Edema No Gallop No JVD No Murmur Normal Peripheral Pulses Gastrointestinal: Normal Bowel Sounds No Organomegaly No Pulsatile Mass Non Tender Soft Back: Normal Inspection No CVA Tenderness No Vertebral Tenderness Extremity: Normal Capillary Refill Normal Inspection Normal Range of Motion Non Tender No Calf Tenderness No Pedal Edema Neurologic/Psychiatric: Alert Oriented x3 No Motor/Sensory Deficits Normal Mood/Affect Skin: Normal Color Warm/Dry Lymphatic: No Adenopathy Results Results/Procedures Lab Laboratory Tests 07/03/16 15:37 07/04/16 06:05 Short Stay Diagnosis Discharge Diagnosis-Short Stay Admission Diagnosis 1.viral illness. 2.dehydration secondary to number 1. 3.multiple musculoskeletal complaints. Final Discharge Diagnosis 1.dehydration. 2.viral illness improving. 3.musculoskeletal complaints now only right low anterior ribs. Conclusion Plan Discharged to home. See discharge sequence for details Clinical Quality Measures DVT/VTE Risk/Contraindication: Risk Factor Score Per Nursin RFS Level Per Nursing on Admit: 3=High CHARY KRAMER MD Jul 05, 2016 10:57
[2016-07-05] MEDS ORDERED: HYDR-3812 PO (11:01)
--- NOTE | 2016-07-05 11:08 | Discharge Inst-Simple/Standard ---
Discharge Inst-Standard Discharge Medications New, Converted or Re-Newed RX: RX on Chart Patient Instructions/Follow Up Plan of Care/Instructions/FU: Take at least 1 quart of water daily until feeling better than resume usual habits Increased physical activities as year energy allows. Medications as listed on the discharge sequence. Keep community [facility] appointment for 07/12 Activity as Tolerated: Yes Goal: Return to previous normal status Discharge Diet: Eat Small Frequent Meals Return to The Hospital For: Declining condition CHARY KRAMER MD Jul 05, 2016 11:08
== END 2016-07-05 12:05 | disposition home or self-care (01) | DRG 641 ==
LOC: EDUNIT# 13:16 → ER 13:18 → 4TH 16:52
PROVIDERS: ADMIT Family Medicine; ATTEND Family Medicine
DX: E86.0 Dehydration (principal); B34.9 Viral infection, unspecified; R07.81 Pleurodynia; M79.601 Pain in right arm; M79.604 Pain in right leg; M79.605 Pain in left leg; I10 Essential (primary) hypertension
CPT/HCPCS: 36415; 71020; 74176; 80053; 81000; 82150; 83605; 83690; 83735; 85025; 86141; 87040; 87077; 94760; 96361; 96365

== ENCOUNTER 2016-07-23 22:48 | Emergency (ER) | payer OTHER ==
[~2016-07-23] VITALS: Ht 182.9 cm; Wt 101.7 kg
[~2016-07-23 22:48] MED LIST changes: +ACET-2267 PO; +AMOX500C2 PO; +ASPI-983 PO; +tylenol
--- OUTSIDE RECORDS SUMMARY | 2016-07-23 22:53 | XMS REPORT | Continuity of Care Document ---
Author Author [facility] Address Unknown Phone Unavailable Allergies Medications Problems Date Dx Coded Attending Type Code Diagnosis Diagnosed By 04/24/2014 JENNIFER CURRAN MD 401.1 BENIGN ESSENTIAL HYPERTENSION 04/24/2014 JENNIFER CURRAN MD V76.51 COLON CANCER SCREENING Procedures Code [place] [address] ROUTINE VENIPUNCTURE 04/24/2014 16268 CMP 04/24/2014 64062 LIPID PANEL 04/24 Results Encounters ACCT No. Visit Date/Time Discharge Status Pt. Type Provider Facility Loc./Unit Complaint [id number] 04/24/2014 08:14:00 04/24/2014 23: 59:59 CLS Outpatient JENNIFER CURRAN MD
[2016-07-23 23:15] LABS: BASOPHILS % (AUTO) 0 % (0-10); EOSINOPHILS # (AUTO) 0.1 10^3/uL (0.0-0.3); EOSINOPHILS % (AUTO) 1 % (0-10); LYMPHOCYTES # (AUTO) 0.6 X 10^3 (1.0-4.0); LYMPHOCYTES % (AUTO) 9 % (12-44); MEAN CORPUSCULAR HEMOGLOBIN 30 PG (25-34); MEAN CORPUSCULAR HGB CONC 34 G/DL (32-36); MEAN CORPUSCULAR VOLUME 90 FL (80-99); MONOCYTES # (AUTO) 0.3 X 10^3 (0.0-1.0); MONOCYTES % (AUTO) 5 % (0-12); NEUTROPHILS # (AUTO) 5.3 X 10^3 (1.8-7.8); NEUTROPHILS % (AUTO) 85 % (42-75); PLATELET COUNT 283 10^3/uL (130-400); RED CELL DISTRIBUTION WIDTH 12.9 % (10.0-14.5); WHITE BLOOD COUNT 6.3 10^3/uL (4.3-11.0)
[2016-07-23] MEDS ORDERED: diphenhydrAMINE 50 MG/ML INJ (BENADRYL) IVP ONE (23:15)
[2016-07-23] MEDS ORDERED: methylPREDNISolone 125 MG (Solu-MEDROL) VIAL IVP ONE (23:15)
[2016-07-23] MEDS ORDERED: FAMOTIDINE 20MG/2ML IV (PEPCID) IVP ONE (23:15)
[2016-07-23 23:31] LABS: ALANINE AMINOTRANSFERASE 20 U/L (0-55); ALBUMIN 2.9 G/DL (3.2-4.5); ANION GAP 12 MMOL/L (5-14); ASPARTATE AMINO TRANSFERASE 25 U/L (5-34); BILIRUBIN,TOTAL 0.5 MG/DL (0.1-1.0); BLOOD UREA NITROGEN 23 MG/DL (7-18); BUN/CREATININE RATIO 14; CALCIUM 8.3 MG/DL (8.5-10.1); CARBON DIOXIDE 19 MMOL/L (21-32); CHLORIDE 107 MMOL/L (98-107); CREATININE SERUM 1.66 MG/DL (0.60-1.30); GFR ESTIMATED 42; GLUCOSE 123 MG/DL (70-105); POTASSIUM 3.8 MMOL/L (3.6-5.0); SODIUM 138 MMOL/L (135-145); TOTAL PROTEIN 6.7 G/DL (6.4-8.2)
[2016-07-23 23:51] LABS: TROPONIN I < 0.30 NG/ML (<0.30)
[2016-07-24] MEDS ORDERED: EPINEPHrine INJECTION 1 MG/ML AMP IM ONE (01:30)
--- NOTE | 2016-07-24 03:19 | ED General ---
General Chief Complaint: Allergic Reaction Stated Complaint: TONGUE SWELLING Nursing Triage Note: patient reports tongue swelling x 2 hours Nursing Sepsis Screen: No Definite Risk Source of Information: Patient Exam Limitations: No Limitations History of Present Illness Time Seen by Provider: 22:54 Initial Comments This 61-year-old gentleman presents to the emergency room with complaints of tongue swelling since about 21:00. He denies any new medications. He did take about 1/2 teaspoon of honey shortly before the swelling started. He also reports having about 10 days of cough, shortness of air, and chest pain worse with lying down. Chest pain has been better since 16:00. Pain seems to be most focused around the lower costal margins. He has already seen a testing director this week for evaluation of the chest pain and has a stress test scheduled for Monday or Monday. He was admitted to the hospital July 03 for suspected pneumonia. Antibiotics were initiated in the hospital but he was not discharged on antibiotics. He denies any fever. Allergies and Home Medications Allergies Coded Allergies: honey (Verified Allergy, Severe, 07/24/16) Angioedema Home Medications Acetaminophen 500 Mg Tablet 500 MG PO Q4H PRN PRN MILD PAIN (Reported) Aspirin 81 Mg Tablet.dr 81 MG PO DAILY (Reported) Atenolol 50 Mg Tablet 50 MG PO DAILY (Reported) Epinephrine 0.3 Mg/0.3 Ml Auto.injct #1 0.3 MG IJ UD For allergic reaction with throat swelling or difficulty breathing. Prescribed by: AMILCAR DAVE on 07/24/16333 Prednisone 20 Mg Tab #4 20 MG PO DAILY Prescribed by: AMILCAR DAVE on 07/24/16333 Constitutional: no symptoms reported EENTM: see HPI Respiratory: see HPI Cardiovascular: see HPI Gastrointestinal: no symptoms reported Genitourinary: no symptoms reported Musculoskeletal: no symptoms reported Skin: no symptoms reported Psychiatric/Neurological: No Symptoms Reported Hematologic/Lymphatic: No Symptoms Reported Past Bykfxnf-Rezzbe-Wslcrf Hx Patient Social History Alcohol Use: Denies Use Recreational Drug Use: No Smoking Status: Never a Smoker Recent Foreign Travel: No Contact w/Someone Who Travel: No Recent Infectious Disease Expo: No Recent Hopitalizations: No Immunizations Up To Date Tetanus Booster (TDap): Unknown PED Vaccines UTD: Yes Seasonal Allergies Seasonal Allergies: No Surgeries HX Surgeries: No Respiratory Hx Respiratory Disorders: Yes Respiratory Disorders: Pneumonia Cardiovascular Hx Cardiac Disorders: Yes Cardiac Disorders: Hypertension Neurological Hx Neurological Disorders: No Reproductive System Hx Reproductive Disorders: No Sexually Transmitted Disease: No HIV/AIDS: No Genitourinary Hx Genitourinary Disorders: Yes Genitourinary Disorders: Kidney Stones, Renal Failure (CKD) Gastrointestinal Hx Gastrointestinal Disorders: No Gastrointestinal Disorders: Gastroesophageal Reflux Musculoskeletal Hx Musculoskeletal Disorders: No Endocrine Hx Endocrine Disorders: No HEENT HX ENT Disorders: No Cancer Hx Cancer: No Psychosocial Hx Psychiatric Problems: No Integumentary HX Skin/Integumentary Disorder: No Blood Transfusions Hx Blood Disorders: No Family Medical History Significant Family History: No Pertinent Family Hx Family Medial History: Cardiovascular disease G8 BROTHER Completed stroke 19 MOTHER Hypertension G8 BROTHER Myocardial infarction 19 FATHER 19 MOTHER Prostate cancer G8 BROTHER Physical Exam Vital Signs Vital Sign - Last 12Hours 07/23/16 07/24/16 22:53 03:41 Temp 98.2 Pulse 83 Resp 18 B/P 157/104 Pulse Ox 97 O2 Delivery Room Air Capillary Refill : Less Than 3 Seconds General Appearance: No Apparent Distress WD/WN HEENT: PERRL/EOMI TMs Normal Other (Marked edema of the tongue with minimal edema of the posterior pharynx. Airway remains patent.) Neck: Normal Inspection Respiratory: Lungs Clear Normal Breath Sounds No Accessory Muscle Use No Respiratory Distress Cardiovascular: Regular Rate, Rhythm No Edema No Murmur Normal Peripheral Pulses Gastrointestinal: Normal Bowel Sounds Non Tender Soft Back: Normal Inspection Extremity: Normal Inspection Non Tender No Calf Tenderness No Pedal Edema Other (negative Ifeanyi) Neurologic/Psychiatric: Alert Oriented x3 No Motor/Sensory Deficits Normal Mood/Affect proposal rep II-XII Norm as Tested Skin: Normal Color Warm/Dry Progress/Results/Core Measures Results/Orders Lab Results Laboratory Tests Test 07/23/16 23:05 07/23/16 23:50 Range/Units Alanine Aminotransferase (ALT/SGPT) 20 0-55 U/L Albumin 2.9 L 3.2-4.5 G/DL Alkaline Phosphatase 49 40-136 U/L Anion Gap 12 5-14 MMOL/L Aspartate Amino Transf (AST/SGOT) 25 5-34 U/L BUN/Creatinine Ratio 14 Basophils # (Auto) 0.0 0.0-0.1 10^3/uL Basophils (%) (Auto) 0 0-10 % Blood Urea Nitrogen 23 H 7-18 MG/DL Calcium Level 8.3 L 8.5-10.1 MG/DL Carbon Dioxide Level 19 L 21-32 MMOL/L Chloride Level 107 98-107 MMOL/L Creatinine 1.66 H 0.60-1.30 MG/DL Eosinophils # (Auto) 0.1 0.0-0.3 10^3/uL Eosinophils (%) (Auto) 1 0-10 % Estimat Glomerular Filtration Rate 42 Free Thyroxine 0.93 0.70-1.48 NG/DL Glucose Level 123 H 70-105 MG/DL Hematocrit 33 L 40-54 % Hemoglobin 11.2 L 13.3-17.7 G/DL Lymphocytes # (Auto) 0.6 L 1.0-4.0 X 10^3 Lymphocytes (%) (Auto) 9 L 12-44 % Mean Corpuscular Hemoglobin 30 25-34 PG Mean Corpuscular Hemoglobin Concent 34 32-36 G/DL Mean Corpuscular Volume 90 80-99 FL Mean Platelet Volume 9.0 7.4-10.4 FL Monocytes # (Auto) 0.3 0.0-1.0 X 10^3 Monocytes (%) (Auto) 5 0-12 % Neutrophils # (Auto) 5.3 1.8-7.8 X 10^3 Neutrophils (%) (Auto) 85 H 42-75 % Platelet Count 283 130-400 10^3/uL Potassium Level 3.8 3.6-5.0 MMOL/L Red Blood Count 3.70 L 4.35-5.85 10^6/uL Red Cell Distribution Width 12.9 10.0-14.5 % Sodium Level 138 135-145 MMOL/L TSH [place] Testing 5.16 H 0.35-4.94 UIU/ML Total Bilirubin 0.5 0.1-1.0 MG/DL Total Protein 6.7 6.4-8.2 G/DL Troponin I < 0.30 <0.30 NG/ML White Blood Count 6.3 4.3-11.0 10^3/uL C-Reactive Protein High Sensitivity 13.19 H 0.00-0.50 MG/DL My Orders Orders-AMILCAR LOZANO MD Diphenhydramine Injection (Benadryl Inje (07/23/16 23:15) Methylprednisolone Sod Succ (Solu-Medrol (07/23/16 23:15) Famotidine Injection (Pepcid Injection) (07/23/16 23:15) Chest Pa/Lat (2 View) (07/23/16 23:02) Cbc With Automated Diff (07/23/16 23:02) Comprehensive Metabolic Panel (07/23/16 23:02) Thyroid Analyzer (07/23/16 23:02) Troponin I (07/23/16 23:02) Saline Lock/Iv-Start (07/23/16 23:02) Ekg Tracing (07/23/16 23:02) Free T4 (Free Thyroxine) (07/23/16 23:05) Hs C Reactive Protein (07/24/16 00:18) Epinephrine 1 Mg Injection (Adrenalin I (07/24/16 01:30) Doxycycline Hyclate Tablet (Vibramycin T (07/24/16 03:30) Famotidine Injection (Pepcid Injection) (07/24/16 06:30) Methylprednisolone Sod Succ (Solu-Medrol (07/24/16 06:30) Medications Given in ED Current Medications Medications Dose Ordered Sig/Lynne Route Start Time Stop Time Status Last Admin Dose Admin Diphenhydramine HCl 25 mg ONCE ONCE IVP 07/23/16 23:15 07/23/16 23:16 DC 07/23/16 23:11 25 MG Epinephrine HCl 0.3 mg ONCE ONCE IM 07/24/16 01:30 07/24/16 01:31 DC 07/24/16 01:37 0.3 MG Famotidine 20 mg ONCE ONCE IVP 07/23/16 23:15 07/23/16 23:16 DC 07/23/16 23:11 20 MG Methylprednisolone Sodium Succinate 125 mg ONCE ONCE IVP 07/23/16 23:15 07/23/16 23:16 DC 07/23/16 23:11 125 MG Vital Signs/I&O Vital Sign - Last 12Hours 07/23/16 07/24/16 22:53 03:41 Temp 98.2 Pulse 83 79 Resp 18 20 B/P 157/104 159/89 Pulse Ox 97 95 O2 Delivery Room Air Blood Pressure Mean: 121 Progress Note #1: Time: 01:30 Progress Note Patient received Benadryl 25 mg IV, Solu-Medrol 125 mg IV, and Pepcid 20 mg IV. He reports feeling improvement but I am not satisfied with the appearance of his tongue at this point. A dose of epinephrine has been ordered and he will be monitored closely. Progress Note #2: Time: 03:15 Progress Note There was marked improvement in tongue swelling after epinephrine administration. Progress Note #3: Time: 06:23 Progress Note Patient has some residual swelling of the posterior tongue but no rebound at this point in time. Another dose of Pepcid and Solu-Medrol will be administered before departure. ECG Initial ECG Impression Date: Jul 24, 2016 Initial ECG Impression Time: 23:11 Initial ECG Rate: 76 Initial ECG Rhythm: Normal Sinus Comment Sinus rhythm with no ST elevation or depression. LVH. No abnormal intervals. Diagnostic Imaging Diagonstic Imaging: Xray Plain Films/CT/US/NM/MRI: chest Comments Chest x-ray viewed by me. Report not yet available. Compared with prior. There appears to be increased atelectasis and/or infiltrate in the right lower lung and possible perihilar consolidation. Atelectasis in the left base appears improved. Departure Impression Impression: Primary Impression: Angioedema Qualified Code: T78.3XXA - Angioneurotic edema, initial encounter Additional Impression: Right lower lobe pneumonia Qualified Code: J18.1 - Lobar pneumonia, unspecified organism Disposition: 01 HOME, SELF-CARE Condition: Improved Departure-Patient Inst. Decision time for Depature: 06:20 Referrals: [facility] (PCP/Family) Primary Care Physician Patient Instructions: Angioedema, Community-Acquired Pneumonia in Adults Add. Discharge Instructions: Follow-up with your primary care provider as soon as possible. Complete your doxycycline antibiotic as prescribed. Take Pepcid (famotidine) 20 mg twice daily for the next 5 days. Take prednisone 20 mg starting this evening twice daily until gone. Take Benadryl (diphenhydramine) 50 mg every 4 hours as needed if swelling starts to return. If you have difficulty breathing or swelling in your throat, please return to emergency room or call 911. All discharge instructions reviewed with patient and/or family. Voiced understanding. Scripts Doxycycline Hyclate 100 Mg Tablet.dr100 Mg PO BID #20 TAB Prov:AMILCAR LOZANO MD 07/24/16 Famotidine (Pepcid)20 Mg [id number] Mg PO BID #10 TAB Prov:AMILCAR LOZANO MD 07/24/16 Prednisone 20 Mg Tab20 Mg PO DAILY #4 TAB Prov:AMILCAR LOZANO MD 07/24/16 Epinephrine (Epipen 2-Max)0.3 Mg/0.3 Ml Auto.injct0.3 Mg IJ UD #1 ML For allergic reaction with throat swelling or difficulty breathing. Prov:AMILCAR LOZANO MD 07/24/16 Copy Copies To 1: MACIE SMITH JOSHUA T MD Jul 24, 2016 03:19
[2016-07-24] MEDS ORDERED: DOXYCYCLINE 100 MG (VIBRAMYCIN) TABLET PO ONE (03:30)
[2016-07-24] MEDS ORDERED: EPIN0.3P3 IJ (03:34)
[2016-07-24] MEDS ORDERED: PRD20T PO (03:34)
[2016-07-24 03:41] VITALS: BP 159/89
[2016-07-24] MEDS ORDERED: DOXY-227 PO (06:23)
[2016-07-24] MEDS ORDERED: FAMO-119 PO (06:23)
[2016-07-24] MEDS ORDERED: DOXYCYCLINE 100 MG (VIBRAMYCIN) TABLET ONE (06:26)
[2016-07-24] MEDS ORDERED: FAMOTIDINE 20MG/2ML IV (PEPCID) IVP ONE (06:30)
[2016-07-24] MEDS ORDERED: methylPREDNISolone 125 MG (Solu-MEDROL) VIAL IVP ONE (06:30)
[2016-07-24 06:35] VITALS: BP 153/96
--- NOTE | 2016-07-24 08:24 | Diagnostic Imaging Report ---
INDICATION: Allergic reaction. TECHNIQUE: Two view chest 11:35 PM CORRELATION STUDY: 07/03/2016 FINDINGS: There are continued streaky areas of atelectasis or perhaps scarring about the left lung base stable perhaps slightly improved. There is streaky somewhat patchy areas of infiltrate or atelectasis right lung base appearing slightly increased. Additionally, there is small right pleural effusion present. Heart size, mediastinum and vasculature overall generally stable. Visualized osseous structures are unremarkable. IMPRESSION: 1. Continued areas of atelectasis or scarring about the left lung base perhaps slightly improved. However, atelectasis and/or infiltrate right lung base along with small right pleural effusion present slightly increased from prior study. Dictated by: Dictated on workstation # [id number]
== END 2016-07-24 06:36 | disposition home or self-care (01) ==
LOC: EDUNIT# 22:48 → ER 22:49
DX: T78.3XXA Angioneurotic edema, initial encounter (principal); J18.9 Pneumonia, unspecified organism; I12.9 Hypertensive chronic kidney disease with stage 1 through stage 4 chronic kidney disease, or unspecified chronic kidney disease; N18.9 Chronic kidney disease, unspecified; Z79.82 Long term (current) use of aspirin; Z79.899 Other long term (current) drug therapy
CPT/HCPCS: 36415; 71020; 80053; 84439; 84443; 84484; 85025; 86141; 93005; 96372; 96374; 96375; 96376

== ENCOUNTER 2016-11-24 12:54 | Emergency (ER) | payer SELFPAY ==
[~2016-11-24] VITALS: Ht 182.9 cm; Wt 101.7 kg
[~2016-11-24 12:54] MED LIST changes: +DOXY-227 PO; +EPIN0.3P3 IJ; +FAMO-119 PO; +PRD20T PO
--- OUTSIDE RECORDS SUMMARY | 2016-11-24 13:02 | XMS REPORT | Continuity of Care Document ---
Author Author [facility] Address Unknown Phone Unavailable Allergies Medications Problems Date Dx Coded Attending Type Code Diagnosis Diagnosed By 04/24/2014 JENNIFER CURRAN MD 401.1 BENIGN ESSENTIAL HYPERTENSION 04/24/2014 JENNIFER CURRAN MD V76.51 COLON CANCER SCREENING Procedures Code [place] [address] ROUTINE VENIPUNCTURE 04/24/2014 95061 CMP 04/24/2014 06501 LIPID PANEL 04/24 Results Encounters ACCT No. Visit Date/Time Discharge Status Pt. Type Provider Facility Loc./Unit Complaint [id number] 04/24/2014 08:14:00 04/24/2014 23: 59:59 CLS Outpatient JENNIFER CURRAN MD
--- NOTE | 2016-11-24 13:41 | ED GU-Male ---
General Chief Complaint: -Male Stated Complaint: URINATING BLOOD Source: patient Exam Limitations: no limitations History of Present Illness Time seen by provider: 13:37 Initial Comments The patient is a 61-year-old white male who presents to the emergency room with complaints of blood in his urine. He reports that he has no abdominal or flank pain. There is a past history of kidney stones. He had a visit here in April 2010 which showed a had hematuria and a left ureteral stone reported. He states that he had a bowel movement after 10 o'clock this morning and then noted blood in the toilet. He has provided us with a clearly bloody urine specimen here in the emergency room. There is a CT scan of the abdomen and pelvis performed earlier this year which showed several nonobstructing calyceal calculi bilaterally as well as multiple large peripelvic cysts Timing/Duration: this morning Location: unknown Radiation: none Activities at Onset: none Allergies and Home Medications Allergies Coded Allergies: honey (Verified Allergy, Severe, 07/24/16) Angioedema Home Medications Acetaminophen 500 Mg Tablet, 500 MG PO Q4H PRN for MILD PAIN, (Reported) Aspirin 81 Mg Tablet.dr, 81 MG PO DAILY, (Reported) Atenolol 50 Mg Tablet, 50 MG PO DAILY, (Reported) Doxycycline Hyclate 100 Mg Tablet.dr, 100 MG PO BID, #20 Prescribed by: AMILCAR DAVE on 07/24/16 0623 Epinephrine 0.3 Mg/0.3 Ml Auto.injct, 0.3 MG IJ UD, #1 For allergic reaction with throat swelling or difficulty breathing. Prescribed by: AMILCAR DAVE on 07/24/16 0334 Famotidine 20 Mg Tablet, 20 MG PO BID, #10 Prescribed by: AMILCAR DAVE on 07/24/16 0623 Prednisone 20 Mg Tab, 20 MG PO DAILY, #4 Prescribed by: AMILCAR DAVE on 07/24/16 0334 Constitutional: no symptoms reported EENTM: no symptoms reported Respiratory: no symptoms reported Cardiovascular: no symptoms reported Gastrointestinal: no symptoms reported Genitourinary: see HPI Musculoskeletal: no symptoms reported Skin: no symptoms reported Psychiatric/Neurological: No Symptoms Reported Endocrine: No Symptoms Reported Hematologic/Lymphatic: No Symptoms Reported Past Dsuzkpw-Oofllr-Ujlyvq Hx Patient Social History Recent Foreign Travel: No Contact w/Someone Who Travel: No Recent Hopitalizations: No Immunizations Up To Date Tetanus Booster (TDap): Unknown PED Vaccines UTD: Yes Seasonal Allergies Seasonal Allergies: No Surgeries HX Surgeries: No Respiratory Hx Respiratory Disorders: Yes Respiratory Disorders: Pneumonia Cardiovascular Hx Cardiac Disorders: Yes Cardiac Disorders: Hypertension Neurological Hx Neurological Disorders: No Reproductive System Hx Reproductive Disorders: No Sexually Transmitted Disease: No HIV/AIDS: No Genitourinary Hx Genitourinary Disorders: Yes Genitourinary Disorders: Kidney Stones, Renal Failure Gastrointestinal Hx Gastrointestinal Disorders: No Gastrointestinal Disorders: Gastroesophageal Reflux Musculoskeletal Hx Musculoskeletal Disorders: No Endocrine Hx Endocrine Disorders: No HEENT HX ENT Disorders: No Cancer Hx Cancer: No Psychosocial Hx Psychiatric Problems: No Integumentary HX Skin/Integumentary Disorder: No Blood Transfusions Hx Blood Disorders: No Family Medical History Significant Family History: No Pertinent Family Hx Family Medial History: Cardiovascular disease G8 BROTHER Completed stroke 19 MOTHER Hypertension G8 BROTHER Myocardial infarction 19 FATHER 19 MOTHER Prostate cancer G8 BROTHER Physical Exam Vital Signs Vital Sign - Last 12Hours 11/24/16 14:00 Temp 97.5 Pulse 70 B/P (MAP) 146/88 O2 Delivery Room Air Capillary Refill : General Appearance: WD/WN, no apparent distress HEENT: normal ENT inspection Neck: full range of motion Cardiovascular: normal peripheral pulses, regular rate, rhythm, no edema, no gallop, no JVD, no murmur Respiratory: chest non-tender, lungs clear, normal breath sounds, no respiratory distress, no accessory muscle use Gastrointestinal: normal bowel sounds, non tender, soft, no organomegaly, no pulsatile mass Back: normal inspection, no CVA tenderness, no vertebral tenderness Extremities: normal range of motion, non-tender, normal inspection, no pedal edema, no calf tenderness, normal capillary refill, pelvis stable Neurologic/Psychiatric: psychological operations II-XII nml as tested, no motor/sensory deficits, alert, normal mood/affect, oriented x 3 Skin: normal color, warm/dry Lymphatic: no adenopathy Progress/Results/Core Measures Results/Orders Lab Results Laboratory Tests Test 11/24/16 10:40 11/24/16 13:35 Range/Units Urine Color RED H Urine Clarity SLIGHTLY CLOUDY Urine pH 6.5 5-9 Urine Specific [place] 1.015 L 1.016-1.022 Urine Protein 3+ H NEGATIVE Urine Glucose (UA) NEGATIVE NEGATIVE Urine Ketones NEGATIVE NEGATIVE Urine Nitrite POSITIVE H NEGATIVE Urine Bilirubin NEGATIVE NEGATIVE Urine Urobilinogen NORMAL NORMAL MG/DL Urine Leukocyte Esterase 1+ H NEGATIVE Urine RBC (Auto) 5+ H NEGATIVE Urine RBC TNTC H /HPF Urine WBC 0-2 /HPF Urine Squamous Epithelial Cells RARE /HPF Urine Crystals NONE /LPF Urine Bacteria TRACE /HPF Urine Casts NONE /LPF Urine Mucus NEGATIVE /LPF Urine Culture Indicated NO White Blood Count 4.3 4.3-11.0 10^3/uL Red Blood Count 4.09 L 4.35-5.85 10^6/uL Hemoglobin 12.0 L 13.3-17.7 G/DL Hematocrit 37 L 40-54 % Mean Corpuscular Volume 90 80-99 FL Mean Corpuscular Hemoglobin 29 25-34 PG Mean Corpuscular Hemoglobin Concent 33 32-36 G/DL Red Cell Distribution Width 13.7 10.0-14.5 % Platelet Count 159 130-400 10^3/uL Mean Platelet Volume 9.1 7.4-10.4 FL Neutrophils (%) (Auto) 81 H 42-75 % Lymphocytes (%) (Auto) 11 L 12-44 % Monocytes (%) (Auto) 5 0-12 % Eosinophils (%) (Auto) 2 0-10 % Basophils (%) (Auto) 0 0-10 % Neutrophils # (Auto) 3.5 1.8-7.8 X 10^3 Lymphocytes # (Auto) 0.5 L 1.0-4.0 X 10^3 Monocytes # (Auto) 0.2 0.0-1.0 X 10^3 Eosinophils # (Auto) 0.1 0.0-0.3 10^3/uL Basophils # (Auto) 0.0 0.0-0.1 10^3/uL Prothrombin Time 13.0 12.2-14.7 SEC INR Comment 1.0 0.8-1.4 Activated Partial Thromboplast Time 29 24-35 SEC Sodium Level 139 135-145 MMOL/L Potassium Level 4.0 3.6-5.0 MMOL/L Chloride Level 107 98-107 MMOL/L Carbon Dioxide Level 23 21-32 MMOL/L Anion Gap 9 5-14 MMOL/L Blood Urea Nitrogen 22 H 7-18 MG/DL Creatinine 1.96 H 0.60-1.30 MG/DL Estimat Glomerular Filtration Rate 35 BUN/Creatinine Ratio 11 Glucose Level 109 H 70-105 MG/DL Calcium Level 8.7 8.5-10.1 MG/DL My Orders Orders - CHARY KRAMER MD Ct Abd/Pelvis Wo(Kidney Stone) (11/24/16 14:21) Abdomen/Kub 1view (11/24/16 16:14) Vital Signs/I&O Vital Sign - Last 12Hours 11/24/16 14:00 Temp 97.5 Pulse 70 B/P (MAP) 146/88 O2 Delivery Room Air Departure Communication Progress Notes [id number] Dr. Ramirez returned my call. Patient was discussed and he was advised that that he should make an outpatient appointment. Impression Impression: Primary Impression: bilateral ureterolithiasis Additional Impression: bilater Milagro Calyceal cysts Disposition: 01 HOME, SELF-CARE Condition: Stable/Unchanged Departure-Patient Inst. Decision time for Depature: 16:44 Referrals: [facility] (PCP/Family) Primary Care Physician Add. Discharge Instructions: All discharge instructions reviewed with patient and/or family. Voiced understanding. Increase fluid intake Strain all urine In a.m. call Dr. Ramirez's office, [phone] for appointment. If disturbing pain occurs CHARY KRAMER MD Nov 24, 2016 13:41
[2016-11-24 13:43] LABS: BILIRUBIN,URINE NEGATIVE (NEGATIVE); KETONES,URINE NEGATIVE (NEGATIVE); LEUKOCYTE ESTERASE ,URINE 1+ (NEGATIVE); NITRITE,URINE POSITIVE (NEGATIVE); PH,URINE 6.5 (5-9); PROTEIN,URINE 3+ (NEGATIVE); UROBILINOGEN,URINE NORMAL (NORMAL)
[2016-11-24 13:49] LABS: BASOPHILS % (AUTO) 0 % (0-10); EOSINOPHILS # (AUTO) 0.1 10^3/uL (0.0-0.3); EOSINOPHILS % (AUTO) 2 % (0-10); LYMPHOCYTES # (AUTO) 0.5 X 10^3 (1.0-4.0); LYMPHOCYTES % (AUTO) 11 % (12-44); MEAN CORPUSCULAR HEMOGLOBIN 29 PG (25-34); MEAN CORPUSCULAR HGB CONC 33 G/DL (32-36); MEAN CORPUSCULAR VOLUME 90 FL (80-99); MEAN PLATELET VOLUME 9.1 FL (7.4-10.4); MONOCYTES # (AUTO) 0.2 X 10^3 (0.0-1.0); MONOCYTES % (AUTO) 5 % (0-12); NEUTROPHILS # (AUTO) 3.5 X 10^3 (1.8-7.8); NEUTROPHILS % (AUTO) 81 % (42-75); PLATELET COUNT 159 10^3/uL (130-400); RED BLOOD COUNT 4.09 10^6/uL (4.35-5.85); RED CELL DISTRIBUTION WIDTH 13.7 % (10.0-14.5); WHITE BLOOD COUNT 4.3 10^3/uL (4.3-11.0)
[2016-11-24 14:12] LABS: SQUAMOUS EPITHELIAL CELL,UR RARE /HPF; WBC,URINE 0-2 /HPF
[2016-11-24 14:16] LABS: CALCIUM 8.7 MG/DL (8.5-10.1); CREATININE SERUM 1.96 MG/DL (0.60-1.30)
--- NOTE | 2016-11-24 15:21 | Diagnostic Imaging Report ---
PROCEDURE: CT urinary tract, rule out kidney stone. TECHNIQUE: Multiple contiguous axial images were obtained through the abdomen and pelvis without the use of intravenous contrast. INDICATION: Hematuria. FINDINGS: The lung bases demonstrate minimal atelectasis. The visualized portions of the liver, spleen, the gallbladder, the pancreas, and the adrenal glands appear unremarkable for an unenhanced exam. The kidneys demonstrate multiple nonobstructive stones in the calyces measuring up to 4 mm in the left kidney and 3 mm in the right kidney. There is difficulty differentiating the renal pelvis from numerous parapelvic cysts similar to the prior exam. There is probable underlying mild to moderate right hydronephrosis, however. The right ureter is mildly dilated, however. A 3 mm stone in the distal aspect of the right ureter is seen a few millimeters from the UVJ is noted. The bladder demonstrates no stones. The left ureter is not dilated with no stones seen. The abdominal aorta is normal in caliber. No para-aortic significantly enlarged lymph nodes are seen. Nonspecific prostate calcifications seen. The outer contour of the prostate is not significantly enlarged. There are a few colonic diverticula. No diverticulitis. No bowel obstruction. The osseous structures appear grossly unremarkable. IMPRESSION: 1. There is an obstructive distal ureteric stone measuring 3 mm near the right UVJ. There is suggestion of right hydroureteronephrosis. Numerous parapelvic cysts obscure the right renal pelvis and does not allow accurate assessment of degree of pelvic dilatation. 2. Nonobstructive bilateral kidney stones. 3. Diverticulosis. No diverticulitis. Dictated by: Dictated on workstation # [id number]
--- NOTE | 2016-11-24 16:44 | Diagnostic Imaging Report ---
INDICATION: Right-sided obstructive uropathy. TECHNIQUE: Two supine views of the abdomen, 4:38 p.m. CORRELATION STUDY: Renal colic CT from 11/24/2016. FINDINGS: Prominent gas-filled loops of small bowel are noted in the central aspect of the abdomen. There is mild severity fecal retention. There are multiple calcific densities over the expected location of the renal silhouettes which do appear to be somewhat lobulated and distorted. There are calcifications in the pelvis, greatest on the left, likely vascular in nature. The known distal right ureteral stone cannot be well appreciated on this radiograph. There is very questionable faint lucency over the approximately S3-S4 level, which may be reflective of the stone. There is a likely spina bifida occulta defect at the L5 level on the right. IMPRESSION: 1. Multiple calcifications over the renal pelvis, compatible with demonstrated renal stones. Lobulated appearance about the kidneys could be reflective of underlying renal cyst. Question of visualization of a very faint calcification over the right sacrum. 2. A few prominent gas-filled loops of small bowel are noted which could be reflective of mild ileus bowel gas pattern. Dictated by: Dictated on workstation # [id number]
[2016-11-24 17:29] VITALS: BP 164/100
== END 2016-11-24 17:29 | disposition home or self-care (01) ==
LOC: EDUNIT# 12:54 → ER 12:56
DX: N20.2 Calculus of kidney with calculus of ureter (principal); K57.30 Diverticulosis of large intestine without perforation or abscess without bleeding; N28.1 Cyst of kidney, acquired; I10 Essential (primary) hypertension; Z79.82 Long term (current) use of aspirin; Z79.899 Other long term (current) drug therapy
CPT/HCPCS: 36415; 74000; 74176; 80048; 81000; 85025; 85610; 85730; 99282

== ENCOUNTER 2017-03-26 16:51 | Emergency (ER) | payer SELFPAY ==
[~2017-03-26] VITALS: Ht 185.4 cm; Wt 99.8 kg
--- OUTSIDE RECORDS SUMMARY | 2017-03-26 16:57 | XMS REPORT ---
Author Author MAGDYJENNIFER COLBY Organization [facility] Address [address] [place] [address] Care Team Providers Care Application Development Team Lead Name Role Phone JENNIFER CURRAN Unavailable PROBLEMS Type Condition ICD9-CM Code [id number] Code Onset Dates Condition Status SNOMED Code Problem Chronic fatigue R53.82 Active 53477682 Problem Essential hypertension I10 Active 24679105 Problem Normocytic anemia D64.9 Active 266836775 ALLERGIES No Information SOCIAL HISTORY Never Assessed PLAN OF CARE VITAL SIGNS MEDICATIONS No Known Medications RESULTS Name Result Date Reference Range URINE PROTEIN TO CREATININE RATIO 2016-06-30 Creatinine, Urine 131.0 Not Estab. Protein,Total,Urine 190.9 Not Estab. Protein/Creat Ratio 1457 0-200 UA W/ MICROSCOPY 2016-06-30 Specific [place] 1.020 1.005-1.030 pH 6.0 5.0-7.5 Urine-Color Yellow Yellow Appearance Clear Clear WBC Esterase Negative Negative Protein 2+ Negative/Trace Glucose Negative Negative Ketones Negative Negative Occult Blood 3+ Negative Bilirubin Negative Negative Urobilinogen,Semi-Qn 1.0 0.2-1.0 Nitrite, Urine Negative Negative Microscopic Examination See below: WBC 0-5 0 - 5 RBC >30 0 - 2 Epithelial Cells (non renal) None seen 0 - 10 Epithelial Cells (renal) Casts Present None seen Cast Type Hyaline casts N/A Crystals Crystal Type Mucus Threads Present Not Estab. Bacteria Few None seen/Few Yeast Trichomonas Comment LIPID PANEL 2016-06-30 Cholesterol, Total 125 100-199 Triglycerides 103 0-149 HDL Cholesterol 24 >39 VLDL Cholesterol Matty 21 5-40 LDL Cholesterol Calc 80 0-99 CMP 2016-06-30 Glucose, Serum 91 65-99 BUN 24 8-27 Creatinine, Serum 1.67 0.76-1.27 eGFR If NonAfricn Am 43 >59 eGFR If Africn Am 50 >59 BUN/Creatinine Ratio 14 10-22 Sodium, Serum 140 134-144 Potassium, Serum 4.5 3.5-5.2 Chloride, Serum 103 96-106 Carbon Dioxide, Total 24 18-29 Calcium, Serum 8.4 8.6-10.2 Protein, Total, Serum 6.3 6.0-8.5 Albumin, Serum 3.1 3.6-4.8 Globulin, Total 3.2 1.5-4.5 A/G Ratio 1.0 1.1-2.5 Bilirubin, Total 0.3 0.0-1.2 Alkaline Phosphatase, S 44 39-117 AST (SGOT) 23 0-40 ALT (SGPT) 12 0-44 PROCEDURES Procedure Date Ordered Result Body Site ASSAY OF PROTEIN, URINE Jun 30, 2016 ASSAY OF URINE CREATININE Jun 30, 2016 LIPID PANEL Jun 30, 2016 URINALYSIS, AUTO W/SCOPE Jun 30, 2016 VENIPUNCT, ROUTINE* Jun 30, 2016 COMPREHEN METABOLIC PANEL Jun 30, 2016 IMMUNIZATIONS No Known Immunizations MEDICAL (GENERAL) HISTORY Type Description Date Medical History High BP Medical History Renal Calculi 30-40 years ago Hospitalization History Dehydration, viral illness-[facility] 07/03/16
--- OUTSIDE RECORDS SUMMARY | 2017-03-26 16:57 | XMS REPORT ---
Author Author JENNIFER CURRAN Organization [facility] Address [address] [place] [address] Care Team Providers Care Office Specialist Name Role Phone JENNIFER CURRAN Unavailable PROBLEMS Type Condition ICD9-CM Code [id number] Code Onset Dates Condition Status SNOMED Code Problem Chronic fatigue R53.82 Active 25949282 Problem Essential hypertension I10 Active 82954020 Problem Normocytic anemia D64.9 Active 618426907 ALLERGIES No Known Allergies SOCIAL HISTORY Never Assessed PLAN OF CARE Activity Details Follow Up 2 Weeks Reason:Results/fu pain VITAL SIGNS Height 72 in 2016-07-12 Weight 225.0 lbs 2016-07-12 Temperature 97.9 degrees Fahrenheit 2016-07-12 Heart Rate 90 bpm 2016-07-12 Respiratory Rate 20 2016-07-12 BMI 30.51 kg/m2 2016-07-12 Blood pressure systolic 136 mmHg 2016-07-12 Blood pressure diastolic 84 mmHg 2016-07-12 MEDICATIONS Medication Instructions Dosage Frequency Start Date End Date Duration Status Atenolol 50 mg 1 tablet by Oral route 1 time per day Apr, Active Hydrocodone-Acetaminophen 5-325 MG Orally every 6 hrs 1 tablet as needed 6h Active Aspirin 81 mg 1 tablet by Oral route 1 time per day Apr, Active RESULTS Name Result Date Reference Range [facility] 2016-07-12 Glucose, Serum 95 65-99 BUN 19 8-27 Creatinine, Serum 1.59 0.76-1.27 eGFR If NonAfricn Am 46 >59 eGFR If Africn Am 53 >59 BUN/Creatinine Ratio 12 10-22 Sodium, Serum 139 134-144 Potassium, Serum 3.9 3.5-5.2 Chloride, Serum 104 96-106 Carbon Dioxide, Total 25 18-29 Calcium, Serum 8.1 8.6-10.2 Protein, Total, Serum 6.2 6.0-8.5 Albumin, Serum 3.0 3.6-4.8 Globulin, Total 3.2 1.5-4.5 A/G Ratio 0.9 1.1-2.5 Bilirubin, Total 0.3 0.0-1.2 Alkaline Phosphatase, S 53 39-117 AST (SGOT) 43 0-40 ALT (SGPT) 38 0-44 PERIPHERAL BLOOD SMEAR 2016-07-12 WBC Appear normal. RBC PLTs Appear normal. Comments/Recommendations Pathologist CBC 2016-07-12 WBC 4.9 3.4-10.8 RBC 3.69 4.14-5.80 Hemoglobin 10.9 12.6-17.7 Hematocrit 34.2 37.5-51.0 MCV 93 79-97 MCH 29.5 26.6-33.0 MCHC 31.9 31.5-35.7 RDW 14.0 12.3-15.4 Platelets 252 150-379 Neutrophils 76 Lymphs 14 Monocytes 4 Eos 4 Basos 2 Neutrophils (Absolute) 3.7 1.4-7.0 Lymphs (Absolute) 0.7 0.7-3.1 Monocytes(Absolute) 0.2 0.1-0.9 Eos (Absolute) 0.2 0.0-0.4 Baso (Absolute) 0.1 0.0-0.2 Hematology Comments: Note: PROCEDURES Procedure Date Ordered Result Body Site COMPLETE CBC W/AUTO DIFF WBC Jul 12, 2016 BLOOD SMEAR INTERPRETATION Jul 12, 2016 COMPREHEN METABOLIC PANEL Jul 12, 2016 VENIPUNCT, ROUTINE* Jul 12, 2016 IMMUNIZATIONS No Known Immunizations MEDICAL (GENERAL) HISTORY Type Description Date Medical History High BP Medical History Renal Calculi 30-40 years ago Hospitalization History Dehydration, viral illness-[facility] 07/03/16
--- OUTSIDE RECORDS SUMMARY | 2017-03-26 16:59 | XMS REPORT ---
Author Author JENNIFER CURRAN [facility] Address [address] [place] [address] Care Team Providers Care Gastroenterology Professor Name Role Phone JENNIFER CURRAN Unavailable PROBLEMS Type Condition ICD9-CM Code [id number] Code Onset Dates Condition Status SNOMED Code Problem Chronic fatigue R53.82 Active 31418740 Problem Essential hypertension I10 Active 78257311 Problem Normocytic anemia D64.9 Active [id number] ALLERGIES No Information SOCIAL HISTORY Never Assessed PLAN OF CARE VITAL SIGNS MEDICATIONS Medication Instructions Dosage Frequency Start Date End Date Duration Status Hydrocodone-Acetaminophen 5-325 MG Orally every 6 hrs 1 tablet as needed 6h Active Atenolol 50 mg 1 tablet by Oral route 1 time per day Apr, Active Aspirin 81 mg 1 tablet by Oral route 1 time per day Apr, Active Acetaminophen Extra Strength 500 mg Orally every 4 hrs 1 tablet as needed 4h Active RESULTS No Results PROCEDURES No Known procedures IMMUNIZATIONS No Known Immunizations MEDICAL (GENERAL) HISTORY Type Description Date Medical History High BP Medical History Renal Calculi 30-40 years ago Hospitalization History Dehydration, viral illness-[facility] 07/03/16
--- OUTSIDE RECORDS SUMMARY | 2017-03-26 16:59 | XMS REPORT ---
Author Author JENNIFER CURRAN [facility] Address [address] [place] [address] Care Team Providers Care Retail Account Representative Name Role Phone JENNIFER CURRAN Unavailable PROBLEMS Type Condition ICD9-CM Code [id number] Code Onset Dates Condition Status SNOMED Code Problem Chronic fatigue R53.82 Active 53055133 Problem Essential hypertension I10 Active 34545190 Problem Normocytic anemia D64.9 Active [id number] ALLERGIES No Information SOCIAL HISTORY Never Assessed PLAN OF CARE VITAL SIGNS MEDICATIONS No Known Medications RESULTS No Results PROCEDURES No Known procedures IMMUNIZATIONS No Known Immunizations MEDICAL (GENERAL) HISTORY Type Description Date Medical History High BP Medical History Renal Calculi 30-40 years ago Hospitalization History Dehydration, viral illness-[facility] 07/03/16
[2017-03-26] MEDS ORDERED: ONDANSETRON 4 MG/2 ML (SDV) Z0FRAN IVP ONE (17:00)
[2017-03-26] MEDS ORDERED: KETOROLAC 30 MG/ML VIAL IVP ONE (17:00)
--- OUTSIDE RECORDS SUMMARY | 2017-03-26 17:00 | XMS REPORT | Continuity of Care Document ---
Author Author [facility] Address Unknown Phone Unavailable Allergies Medications Problems Date Dx Coded Attending Type Code Diagnosis Diagnosed By 04/24/2014 JENNIFER CURRAN MD 401.1 BENIGN ESSENTIAL HYPERTENSION 04/24/2014 JENNIFER CURRAN MD V76.51 COLON CANCER SCREENING Procedures Code [place] [address] ROUTINE VENIPUNCTURE 04/24/2014 03538 CMP 04/24/2014 18220 LIPID PANEL 04/24 Results Encounters ACCT No. Visit Date/Time Discharge Status Pt. Type Provider Facility Loc./Unit Complaint [id number] 04/24/2014 08:14:00 04/24/2014 23: 59:59 CLS Outpatient JENNIFER CURRAN MD
--- NOTE | 2017-03-26 17:04 | ED GU-Male ---
General Chief Complaint: Abdominal/GI Problems Stated Complaint: LOWER BACK PAIN/DRY HEAVING Source: patient Exam Limitations: no limitations History of Present Illness Time seen by provider: 17:02 Initial Comments To ER with midline low back pain, suprapubic abdominal pain, chills, dry heaving and nausea. This began at 3 p.m. today. He states that he's felt rather poorly for the past 3 days but nonspecific and without pain or fever. Timing/Duration: constant Severity/Quality: moderate Location: suprapubic Activities at Onset: none Prior Genitourinary Problems: none Associated Symptoms: lower back pain Allergies and Home Medications Allergies Coded Allergies: honey (Verified Allergy, Severe, 07/24/16) Angioedema Home Medications Acetaminophen 500 Mg Tablet, 500 MG PO Q4H PRN for MILD PAIN, (Reported) Aspirin 81 Mg Tablet.dr, 81 MG PO DAILY, (Reported) Atenolol 50 Mg Tablet, 50 MG PO DAILY, (Reported) Doxycycline Hyclate 100 Mg Tablet.dr, 100 MG PO BID, #20 Prescribed by: AMILCAR DAVE on 07/24/16 0623 Epinephrine 0.3 Mg/0.3 Ml Auto.injct, 0.3 MG IJ UD, #1 For allergic reaction with throat swelling or difficulty breathing. Prescribed by: AMILCAR DAVE on 07/24/16 0334 Famotidine 20 Mg Tablet, 20 MG PO BID, #10 Prescribed by: AMILCAR DAVE on 07/24/16 0623 Prednisone 20 Mg Tab, 20 MG PO DAILY, #4 Prescribed by: AMILCAR DAVE on 07/24/16 0334 Constitutional: see HPI, chills EENTM: see HPI Respiratory: no symptoms reported Cardiovascular: no symptoms reported Genitourinary: see HPI, denies frequency, denies flank pain, denies hematuria, pain Musculoskeletal: back pain Skin: no symptoms reported Psychiatric/Neurological: No Symptoms Reported Endocrine: No Symptoms Reported Past Yctvtiw-Iiogae-Bepzmr Hx Patient Social History Recent Foreign Travel: No Contact w/Someone Who Travel: No Recent Hopitalizations: No Immunizations Up To Date Tetanus Booster (TDap): Unknown PED Vaccines UTD: Yes Seasonal Allergies Seasonal Allergies: No Surgeries History of Surgeries: No Respiratory History of Respiratory Disorde: Yes Respiratory Disorders: Pneumonia Currently Using CPAP: No Currently Using BIPAP: No Cardiovascular History of Cardiac Disorders: Yes Cardiac Disorders: Hypertension Neurological History of Neurological Disord: No Reproductive System Hx Reproductive Disorders: No Sexually Transmitted Disease: No HIV/AIDS: No Genitourinary Genitourinary Disorders: Kidney Stones, Renal Failure Gastrointestinal History of Gastrointestinal Di: No Gastrointestinal Disorders: Gastroesophageal Reflux Musculoskeletal History of Musculoskeletal Dis: No Endocrine History of Endocrine Disorders: No HEENT History of HEENT Disorders: No Cancer History of Cancer: No Psychosocial History of Psychiatric Problem: No Integumentary History of Skin or Integumenta: No Blood Transfusions History of Blood Disorders: No Family Medical History Significant Family History: No Pertinent Family Hx Family Medial History: Cardiovascular disease G8 BROTHER Completed stroke 19 MOTHER Hypertension G8 BROTHER Myocardial infarction 19 FATHER 19 MOTHER Prostate cancer G8 BROTHER Physical Exam Vital Signs Vital Sign - Last 12Hours 03/26/17 03/26/17 16:53 19:05 Temp 98.0 Pulse 73 Resp 18 B/P (MAP) 127/90 Pulse Ox 93 O2 Delivery Room Air Capillary Refill : General Appearance: WD/WN, no apparent distress HEENT: PERRL/EOMI, normal ENT inspection Neck: non-tender, full range of motion Respiratory: no respiratory distress, no accessory muscle use Gastrointestinal: normal bowel sounds, non tender Extremities: normal range of motion, non-tender, normal inspection Neurologic/Psychiatric: alert, normal mood/affect, oriented x 3 Skin: normal color, warm/dry Progress/Results/Core Measures Results/Orders Lab Results Laboratory Tests Test 03/26/17 17:00 03/26/17 21:20 Range/Units White Blood Count 10.0 4.3-11.0 10^3/uL Red Blood Count 4.27 L 4.35-5.85 10^6/uL Hemoglobin 12.8 L 13.3-17.7 G/DL Hematocrit 38 L 40-54 % Mean Corpuscular Volume 90 80-99 FL Mean Corpuscular Hemoglobin 30 25-34 PG Mean Corpuscular Hemoglobin Concent 34 32-36 G/DL Red Cell Distribution Width 12.0 10.0-14.5 % Platelet Count 155 130-400 10^3/uL Mean Platelet Volume 10.0 7.4-10.4 FL Neutrophils (%) (Auto) 75 42-75 % Lymphocytes (%) (Auto) 14 12-44 % Monocytes (%) (Auto) 11 0-12 % Eosinophils (%) (Auto) 1 0-10 % Basophils (%) (Auto) 0 0-10 % Neutrophils # (Auto) 7.5 1.8-7.8 X 10^3 Lymphocytes # (Auto) 1.4 1.0-4.0 X 10^3 Monocytes # (Auto) 1.0 0.0-1.0 X 10^3 Eosinophils # (Auto) 0.1 0.0-0.3 10^3/uL Basophils # (Auto) 0.0 0.0-0.1 10^3/uL Sodium Level 135 135-145 MMOL/L Potassium Level 3.8 3.6-5.0 MMOL/L Chloride Level 103 98-107 MMOL/L Carbon Dioxide Level 20 L 21-32 MMOL/L Anion Gap 12 5-14 MMOL/L Blood Urea Nitrogen 29 H 7-18 MG/DL Creatinine 2.35 H 0.60-1.30 MG/DL Estimat Glomerular Filtration Rate 28 BUN/Creatinine Ratio 12 Glucose Level 127 H 70-105 MG/DL Calcium Level 8.7 8.5-10.1 MG/DL Total Bilirubin 1.0 0.1-1.0 MG/DL Aspartate Amino Transf (AST/SGOT) 20 5-34 U/L Alanine Aminotransferase (ALT/SGPT) 18 0-55 U/L Alkaline Phosphatase 52 40-136 U/L Total Protein 7.5 6.4-8.2 GM/DL Albumin 3.5 3.2-4.5 GM/DL Urine Color YELLOW Urine Clarity CLEAR Urine pH 5 5-9 Urine Specific [place] 1.020 1.016-1.022 Urine Protein 3+ H NEGATIVE Urine Glucose (UA) NEGATIVE NEGATIVE Urine Ketones NEGATIVE NEGATIVE Urine Nitrite NEGATIVE NEGATIVE Urine Bilirubin NEGATIVE NEGATIVE Urine Urobilinogen 1 NORMAL MG/DL Urine Leukocyte Esterase 1+ H NEGATIVE Urine RBC (Auto) 5+ H NEGATIVE Urine RBC 25-50 H /HPF Urine WBC 2-5 /HPF Urine Crystals PRESENT H /LPF Urine Amorphous Sediment MOD OMAR URATES H /LPF Urine Bacteria NEGATIVE /HPF Urine Casts PRESENT /LPF Urine Coarse Granular Casts 2-5 H /LPF Urine Mucus SMALL H /LPF Urine Culture Indicated NO My Orders Orders - GERALD DEVLIN FIELD TEST ENGINEER Ua Culture If Indicated (03/26/17 16:53) Cbc With Automated Diff (03/26/17 16:53) Comprehensive Metabolic Panel (03/26/17 16:53) Saline Lock/Iv-Start (03/26/17 16:53) Ondansetron Injection (Zofran Injectio (03/26/17 17:00) Ketorolac Injection (Toradol Injection) (03/26/17 17:00) Ns Iv 1000 Ml (Sodium Chloride 0.9%) (03/26/17 17:15) Ct Abd/Pelvis Wo(Kidney Stone) (03/26/17 17:01) Ns Iv 1000 Ml (Sodium Chloride 0.9%) (03/26/17 18:45) Lactated Ringers (Lr 1000 Ml Iv Solution (03/26/17 20:00) Medications Given in ED Current Medications Medications Dose Ordered Sig/Lynne Route Start Time Stop Time Status Last Admin Dose Admin Ketorolac Tromethamine 30 mg ONCE ONCE IVP 03/26/17 17:00 03/26/17 17:01 DC 03/26/17 17:10 30 MG Ondansetron HCl 4 mg ONCE ONCE IVP 03/26/17 17:00 03/26/17 17:01 DC 03/26/17 17:09 4 MG Vital Signs/I&O Vital Sign - Last 12Hours 03/26/17 03/26/17 03/26/17 16:53 19:05 21:15 Temp 98.0 98.0 Pulse 73 60 62 Resp 18 16 18 B/P (MAP) 127/90 123/86 139/88 Pulse Ox 93 96 96 O2 Delivery Room Air Room Air Intake and Output 03/26/17 23:59 Intake Total 3000 ml Balance 3000 ml Progress Note : Progress Note 1947- after 2 L of fluids patient still feels as though he would be unable to urinate. Bladder scan reveals only 64 mL of urine in the bladder. I will order a third liter of fluids, lactated Ringer's, at this time. Diagnostic Imaging Diagonstic Imaging: Xray, CT Comments NAME: PAUL CORDERO Sue MED REC#: [id number] PT STATUS: REG ER : 1955 PHYSICIAN: GERALD DEVLIN FIELD TEST ENGINEER ADMIT DATE: 03/26/17/ER Draft Date of Exam:03/26/17 CT ABD/PELVIS WO(KIDNEY STONE) PROCEDURE: CT urinary tract, rule out kidney stone. TECHNIQUE: Multiple contiguous axial images were obtained through the abdomen and pelvis without the use of intravenous contrast. INDICATION: Bilateral back pain with history of renal stones. CORRELATION STUDY: 11/24/2016. FINDINGS: Lung bases demonstrate likely areas of atelectasis and/or scarring. A few calcified granulomas are present. Pleural thickening is present. Unenhanced liver demonstrates a few scattered low-density lesions, incompletely characterized, not definitively present on prior study. Gallbladder and adrenal glands are unremarkable. Spleen is borderline enlarged. Pancreas is mildly atrophic. There is prominent appearing grayson-hepatic lymph nodes which do appear to be changed from prior study. Marker lymph node adjacent to the portal vein is 20 x 13 mm. Additional aortocaval lymph node posterior to the transverse duodenum, measuring 15 x 11 mm. There is some haziness around the pancreatic head, duodenum and these lymph nodes. Kidneys again demonstrate rather prominent in size and number parapelvic cysts again obscuring the renal pelvis. Additional nonobstructive bilateral renal stones are present. The ureters demonstrate no definitive calcification along their course. Abdominal aorta is slightly ectatic. Gastrointestinal tract demonstrates no obstruction or inflammation. There is rather pronounced rightward curvature of the sigmoid colon. A few colonic diverticuli are present. No findings to suggest acute appendicitis. No significant level of ascites or free air. Urinary bladder is unremarkable. Prostate gland is mildly enlarged. The seminal vesicles are also slightly prominent. Osseous structures demonstrate degenerative change of visualized lower lumbar spine. IMPRESSION: 1. Prominent grayson-hepatic lymph nodes with haziness in and around the pancreatic head and duodenum. Findings are nonspecific but do appear to be changed from prior study. Possibility of pancreatitis or duodenitis could give this appearance. The possibility that these are early pathologically enlarged lymph nodes of neoplastic process, perhaps lymphoma, could also give this appearance. Continued followup imaging evaluation recommended. 2. Prominent parapelvic cysts and/or renal calcifications. No evidence for a ureteric stone or obstructive uropathy. 3. Borderline splenomegaly. Spleen does appear to be somewhat more prominent from prior study. Dictated on workstation # [id number] Dict: 03/26/17 1749 Trans: 03/26/17 5822 [facility] [id number] Interpreted by: ADVID PUCKETT DO Electronically signed by: Departure Impression Impression: Primary Impression: Acute on chronic renal insufficiency Additional Impression: Intra-abdominal lymphadenopathy Disposition: 01 HOME, SELF-CARE Condition: Stable Departure-Patient Inst. Decision time for Depature: 21:54 Referrals: [facility] (PCP/Family) Primary Care Physician Patient Instructions: Acute Abdomen (Belly Pain), Adult (DC) Copy Copies To 1: MACIE SMITH PETER J APRN Mar 26, 2017 17:04
[2017-03-26 17:05] LABS: BASOPHILS % (AUTO) 0 % (0-10); EOSINOPHILS # (AUTO) 0.1 10^3/uL (0.0-0.3); EOSINOPHILS % (AUTO) 1 % (0-10); LYMPHOCYTES # (AUTO) 1.4 X 10^3 (1.0-4.0); LYMPHOCYTES % (AUTO) 14 % (12-44); MEAN CORPUSCULAR HEMOGLOBIN 30 PG (25-34); MEAN CORPUSCULAR HGB CONC 34 G/DL (32-36); MEAN CORPUSCULAR VOLUME 90 FL (80-99); MONOCYTES % (AUTO) 11 % (0-12); NEUTROPHILS # (AUTO) 7.5 X 10^3 (1.8-7.8); NEUTROPHILS % (AUTO) 75 % (42-75); PLATELET COUNT 155 10^3/uL (130-400); RED BLOOD COUNT 4.27 10^6/uL (4.35-5.85)
[2017-03-26] MEDS ORDERED: NS IV 1000 ML 1,000 ML IV SCH ×2 (17:15→18:45)
[2017-03-26 17:24] LABS: ALBUMIN 3.5 GM/DL (3.2-4.5); CALCIUM 8.7 MG/DL (8.5-10.1); CREATININE SERUM 2.35 MG/DL (0.60-1.30); POTASSIUM 3.8 MMOL/L (3.6-5.0); TOTAL PROTEIN 7.5 GM/DL (6.4-8.2)
--- NOTE | 2017-03-26 18:08 | Diagnostic Imaging Report ---
PROCEDURE: CT urinary tract, rule out kidney stone. TECHNIQUE: Multiple contiguous axial images were obtained through the abdomen and pelvis without the use of intravenous contrast. INDICATION: Bilateral back pain with history of renal stones. CORRELATION STUDY: 11/24/2016. FINDINGS: Lung bases demonstrate likely areas of atelectasis and/or scarring. A few calcified granulomas are present. Pleural thickening is present. Unenhanced liver demonstrates a few scattered low-density lesions, incompletely characterized, not definitively present on prior study. Gallbladder and adrenal glands are unremarkable. Spleen is borderline enlarged. Pancreas is mildly atrophic. There is prominent appearing grayson-hepatic lymph nodes which do appear to be changed from prior study. Marker lymph node adjacent to the portal vein is 20 x 13 mm. Additional aortocaval lymph node posterior to the transverse duodenum, measuring 15 x 11 mm. There is some haziness around the pancreatic head, duodenum and these lymph nodes. Kidneys again demonstrate rather prominent in size and number parapelvic cysts again obscuring the renal pelvis. Additional nonobstructive bilateral renal stones are present. The ureters demonstrate no definitive calcification along their course. Abdominal aorta is slightly ectatic. Gastrointestinal tract demonstrates no obstruction or inflammation. There is rather pronounced rightward curvature of the sigmoid colon. A few colonic diverticuli are present. No findings to suggest acute appendicitis. No significant level of ascites or free air. Urinary bladder is unremarkable. Prostate gland is mildly enlarged. The seminal vesicles are also slightly prominent. Osseous structures demonstrate degenerative change of visualized lower lumbar spine. IMPRESSION: 1. Prominent grayson-hepatic lymph nodes with haziness in and around the pancreatic head and duodenum. Findings are nonspecific but do appear to be changed from prior study. Possibility of pancreatitis or duodenitis could give this appearance. The possibility that these are early pathologically enlarged lymph nodes of neoplastic process, perhaps lymphoma, could also give this appearance. Continued followup imaging evaluation recommended. 2. Prominent parapelvic cysts and/or renal calcifications. No evidence for a ureteric stone or obstructive uropathy. 3. Borderline splenomegaly. Spleen does appear to be somewhat more prominent from prior study. Dictated by: Dictated on workstation # [id number]
[2017-03-26 19:05] VITALS: BP 123/86
[2017-03-26] MEDS ORDERED: LACTATED RINGERS 1,000 ML IV SCH (20:00)
[2017-03-26 21:15] VITALS: BP 139/88
[2017-03-26 21:31] LABS: BILIRUBIN,URINE NEGATIVE (NEGATIVE); KETONES,URINE NEGATIVE (NEGATIVE); LEUKOCYTE ESTERASE ,URINE 1+ (NEGATIVE); NITRITE,URINE NEGATIVE (NEGATIVE); PH,URINE 5 (5-9); PROTEIN,URINE 3+ (NEGATIVE); UROBILINOGEN,URINE 1 MG/DL (NORMAL)
[2017-03-26 22:00] VITALS: BP 148/95
== END 2017-03-26 22:00 | disposition home or self-care (01) ==
LOC: EDUNIT# 16:51 → ER 16:53
DX: N17.9 Acute kidney failure, unspecified (principal); N18.9 Chronic kidney disease, unspecified; R59.0 Localized enlarged lymph nodes; K21.9 Gastro-esophageal reflux disease without esophagitis; Z80.42 Family history of malignant neoplasm of prostate; Z82.49 Family history of ischemic heart disease and other diseases of the circulatory system; Z79.82 Long term (current) use of aspirin; Z87.01 Personal history of pneumonia (recurrent); Z87.442 Personal history of urinary calculi
CPT/HCPCS: 36415; 74176; 80053; 81000; 85025; 99283

== ENCOUNTER → 2017-07-11 | Outpatient (CLI) | payer SELFPAY ==
[~2017-07-11] MED LIST changes: +ACHD5005 PO; -HYDR-3812 PO
--- NOTE | 2017-07-11 11:45 | Diagnostic Imaging Report ---
PROCEDURE: CT abdomen and pelvis without contrast. TECHNIQUE: Multiple contiguous axial images were obtained through the abdomen and pelvis without the use of intravenous contrast. INDICATION: Lymphadenopathy. COMPARISON: 03/26/2017. FINDINGS: Included portions of the lung bases show small subpleural micronodular densities within the posterolateral margins of the right lower lobe. These are stable when compared to 03/26/2017. Trace bilateral effusions are also present. CT abdomen: There are a few scattered colonic diverticula. There is no CT evidence of acute diverticulitis. Normal appendix is identified. Small bowel loops are nondistended. Previously described prominent portacaval lymph node is again identified and has decreased in size since prior exam. It measures approximately 2.4 x 0.9 cm on today's exam, in comparison to 2.5 x 1.4 cm previously. A few other smaller portacaval lymph nodes are noted. There is some mild abnormal stranding of the mesenteric fat. Otherwise, no other significant mesenteric or retroperitoneal adenopathy is seen. Size of the spleen has also improved. Spleen measures approximately 12.5 x 6.2 x 12.1 cm on today's exam. This is in comparison to 14.5 x 8.3 x 14.7 cm based on similar re-measurements of the prior exam. No focal splenic lesions are seen on this noncontrast exam. Kidneys again show multiple bilateral nonobstructive renal calculi. Multiple hypodense peripelvic renal cysts are also again identified. No ureteral calculi are identified. The adrenal glands, pancreas, and liver have an unremarkable noncontrast CT appearance. There is no loculated fluid collection, free fluid, nor free air within the abdomen. Bony structures show no acute abnormalities. CT pelvis: Urinary bladder is unopacified. No calculi are seen within the urinary bladder. There is no loculated fluid collection, free fluid, nor free air within the pelvis. No abnormal lymph nodes are identified. Bony structures show no acute abnormalities. IMPRESSION: 1. Interval resolution of splenomegaly. 2. Prominent portacaval lymph node has also decreased in size. Correlation with history of previous infectious or inflammatory process is recommended. 3. Mild stranding of the central mesenteric fat with a few scattered subcentimeter mesenteric lymph nodes. Overall appearance is stable. Although nonspecific, it can be seen with underlying mesenteric adenitis or panniculitis. 4. Multiple bilateral nonobstructive renal calculi. 5. Multiple hypodense peripelvic renal cysts. 6. Colonic diverticulosis, but no CT evidence of acute diverticulitis. Dictated by: Dictated on workstation # [id number]
== END ==
LOC: RAD 10:02
PROVIDERS: ATTEND Family Medicine
DX: N20.0 Calculus of kidney (principal); N28.1 Cyst of kidney, acquired; K57.30 Diverticulosis of large intestine without perforation or abscess without bleeding; R59.0 Localized enlarged lymph nodes
CPT/HCPCS: 74176